=== PATIENT | male | born 1935 | race Caucasian/White ===

== ENCOUNTER 2017-07-13 10:41 | Inpatient (IN) | payer MEDICARE, BC ==
[~2017-07-13] VITALS: Ht 170.2 cm; Wt 63.5 kg
[~2017-07-13 10:41] MED LIST: AMLO5TAB4 PO; CIPR500T4 PO; DIPH-232 PO; LISI-523 PO; METR500T PO; TRAM-40 PO; WARF2.5T PO
[2017-07-13] MEDS ORDERED: ONDANSETRON 4 MG INJ IV STA (10:42)
--- NOTE | 2017-07-13 11:35 | RADRPT ---
PROCEDURE: XR Chest. CLINICAL INDICATION: Shortness of breath. TECHNIQUE: Single frontal view. COMPARISON: 10/15/2014. FINDINGS: This is a limited study with the the patient's hand overlying the right upper lung. The right lung i s otherwise clear. There is chronic scarring, cystic change, and volume loss throughout the left kemi g. The heart size is normal. There is no pleural effusion. There is no pneumothorax. IMPRESSION: 1. Limited study with the the patient's hand overlying the right upper lung. 2. Chronic changes of the left lung. 3. Otherwise unremarkable chest radiograph. 4. No change from 10/15/2014. RPTAT: QQ .Omar Barahona MD, MD Date Time Electronically viewed and signed by .Omar Barahona MD, MD on 07/13/2017 11:34 .R/
[2017-07-13 11:50] LABS: ANION GAP 18 (8-16); BLOOD UREA NITROGEN 19 mg/dl (7-20); CALCIUM 9.7 mg/dl (8.4-10.2); CARBON DIOXIDE 24 mmol/L (21-31); CHLORIDE 108 mmol/L (97-110); CREATININE 1.09 mg/dl (0.61-1.24); GLUCOSE 132 mg/dl (70-220); POTASSIUM 4.4 mmol/L (3.5-5.1); SODIUM 146 mmol/L (135-144)
[2017-07-13 12:04] LABS: INR 1.17; PARTIAL THROMBOPLASTIN TIME 38.2 Sec (25.0-35.0); PT RATIO 1.2; TROPONIN-I < 0.012 ng/ml (0.00-0.12)
--- NOTE | 2017-07-13 12:07 | RADRPT ---
PROCEDURE: CT Brain without contrast. CLINICAL INDICATION: Nonacute stroke, possible stroke TECHNIQUE: Routine CT scan of the brain was performed on a high resolution multi detector scanner without intravenous contrast. One or more of the following dose reduction techniques were used: Auto mated exposure control; Adjustment of the mA and/or kV according to patient size; Use of iterative r econstruction technique. CTDI = 45 mGy. DLP = 720 mGy-cm. DICOM images are available. COMPARISON: CT BRAINW 10/16/2014 FINDINGS: Hemorrhage: No evidence of intracranial hemorrhage. Acute ischemic changes: No evidence of acute ischemic changes. Mass effect: None. Parenchymal volume: Within normal limits for age. Ventricular system: Concordant with parenchymal volume. Chronic changes: Encephalomalacia from right insular/subinsular infarction is unchanged. There are m ultiple areas of low attenuation change within the supratentorial white matter most compatible with moderate chronic microvascular ischemic changes. Atherosclerotic calcifications of the cavernous portions of both internal carotid arteries are prese nt. Extracranial soft tissues: Unremarkable. Calvarium: No fractures. Paranasal sinuses: Visualized paranasal sinuses are clear. Mastoid air cells: Visualized mastoid air cells are clear. IMPRESSION: No acute intracranial abnormalities. Unchanged appearance of chronic infarct of the right insular/7 Catherine region and moderate chronic-appe aring microvascular ischemic changes of the supratentorial white matter. MRI of the brain recommended for further evaluation. RPTAT: AADD .Silvestre Bess MD, Date Time Electronically viewed and signed by .Silvestre Bess MD, on 07/13/2017 12:07 .B/
[2017-07-13 12:23] LABS: BASOPHIL # 0.1 10^3/ul (0.0-0.1); BASOPHILS % 0.5 % (0.0-2.0); EOSINOPHILS % 0.3 % (0.0-7.0); HEMATOCRIT 39.9 % (42.0-52.0); HEMOGLOBIN 13.3 g/dl (14.0-18.0); LYMPHOCYTES # 3.7 10^3/ul (0.8-2.9); LYMPHOCYTES % 23.7 % (15.0-51.0); MEAN CORPUSCULAR HEMOGLOBIN 29.7 pg (29.0-33.0); MEAN CORPUSCULAR HGB CONC 33.3 g/dl (32.0-37.0); MEAN CORPUSCULAR VOLUME 89.1 fl (82.0-101.0); MONOCYTES % 6.6 % (0.0-11.0); NEUTROPHIL # 10.4 10^3/ul (1.6-7.5); PLATELET COUNT 366 10^3/UL (140-415); RED BLOOD COUNT 4.48 10^6/ul (4.70-6.10); RED CELL DISTRIBUTION WIDTH 15.8 % (11.5-14.5); WHITE BLOOD COUNT 15.4 10^3/ul (4.8-10.8)
--- NOTE | 2017-07-13 12:28 | RADRPT ---
PROCEDURE: CT Abdomen and Pelvis without contrast. CLINICAL INDICATION: Abdominal and pelvic pain. TECHNIQUE: CT scan of the abdomen and pelvis without contrast was performed. Coronal and sagittal reformatted images were obtained from the axial source images. Images were reviewed on a high-resolu [employer] PACS workstation. Total exam DLP is 381.66 mGy-cm. CTDIvol is 6.55 mGy. One or more of the fo llowin dose reduction techniques were used: Automated exposure control, adjustment of the mA and/or kV according to patient size, use of iterative reconstruction technique. DICOM images are available . COMPARISON: CT scan of the abdomen and pelvis dated 02/24/2016. FINDINGS: The images are suboptimal due to the patients upper extremities overlying the abdomen and pelvis. right lung base is normal. There is elevation of the left hemidiaphragm and the left lung base is no t included on the images. The liver is normal in size and attenuation. There is no focal hepatic lesion. The gallbladder and bile ducts are normal. The spleen is normal in size. There is no focal splenic lesion. Both adrenals are normal with no enlargement or mass. The pancreas is unremarkable with no mass or evidence of pancreatitis. There is no solid renal mass, hydronephrosis, or calculus. There is a benign cyst arising from the l ower right kidney measuring 5.2 cm. The abdominal aorta is not dilated. There is calcification in the aorta consistent with atherosclero sis. There is no retroperitoneal lymphadenopathy or mass. There is no pelvic lymphadenopathy or mass. The bladder and distal ureters are normal. The periappendiceal region is unremarkable with no evidence of appendicitis. There is diverticulosis of the colon without evidence of diverticulitis. There is thickening of the wall of the small bowel in the left side of the abdomen. There is no evidence of obstruction. The bowel and mesentery are otherwise normal. There is no free fluid or free gas. There are mild degenerative changes of the spine. The osseous structures are otherwise unremarkable with no fracture or lytic lesion. IMPRESSION: 1. Limited study due to the patient's upper extremities overlying the abdomen and pelvis. 2. Elevation of the left hemidiaphragm. 3. Benign cyst arising from the lower right kidney. 4. Sclerosis. 5. Diverticulosis of the colon. No evidence of diverticulitis. 6. Thickening of the wall of the small bowel in the left side of the abdomen. This may indicate an inflammatory process or ischemia. Clinical correlation advised. 7. No evidence of obstruction. 8. Mild degenerative changes of the spine. 9. Otherwise unremarkable CT scan of the abdomen and pelvis. RPTAT: QQ .Omar Barahona MD, MD Date Time Electronically viewed and signed by .Omar Barahona MD, MD on 07/13/2017 12:28 .R/
[2017-07-13] MEDS ORDERED: ASPIRIN 325 MG TAB PO STA (12:34)
[2017-07-13] MEDS ORDERED: APIX2.5T PO (12:47)
[2017-07-13] MEDS ORDERED: AMLO-147 PO (12:48)
[2017-07-13] MEDS ORDERED: ONDANSETRON 4 MG INJ IV PRN (13:00)
[2017-07-13] MEDS ORDERED: ACETAMINOPHEN 325 MG TAB PO PRN ×2 (13:00→20:00)
--- NOTE | 2017-07-13 13:26 | ERD ---
ER Documentation Chief Complaint Chief Complaint biba from home for vomitting , denies pain HPI Patient is an 82-year-old male with stroke and hypertension who presents with dizziness. Please note the history and physical exam is limited secondary to confusion but the patient was interviewed with an Mong[place]ian wellness assistant. The patient was brought in by ambulance. He felt dizzy when he woke up at 8 AM. He came from home. He has nausea and vomiting. He has been urinating a lot. The symptoms started yesterday. He had no chest pain. He had no shortness of breath. The family is concerned about a possible stroke. This is the patient' s fourth visit to the ER since 2008. The patient's primary doctor is Dr. Conner. ROS All systems reviewed and are negative except as per history of present illness. Medications Home Meds Active Scripts Lisinopril* (Zestril*) 5 Mg Tab, 5 MG PO BID, #30 3 Refills Prov:BLAIR MANN 10/18/14 Reported Medications Amlodipine Besylate* (Amlodipine Besylate*) 10 Mg Tablet, 10 MG PO DAILY, #30 TAB 07/13/17 Apixaban* (Eliquis*) 2.5 Mg Tablet, 2.5 MG PO BID, TAB 07/13/17 Discontinued Reported Medications Warfarin Sodium* (Coumadin*) 2.5 Mg Tablet, 2.5 MG PO DIRECTED 09/14/12 Discontinued Scripts Tramadol Hcl* (Ultram*) 50 Mg Tablet, 50 MG PO Q6H Y for PAIN, #20 TAB Prov:CLYDE BERKOWITZ DO 02/24/16 Diphenoxylate Hcl-Atropine (Lomotil) 1 Tab Tablet, 1 TAB PO QID Y for DIARRHEA, #10 TAB Prov:MAHIN BERKOWITZS A. DO 02/24/16 Metronidazole* (Flagyl*) 500 Mg Tablet, 500 MG PO TID for 7 Days, TAB Prov:SHELLI BERKOWITZSTMARYS A. DO 02/24/16 Ciprofloxacin Hcl* (Ciprofloxacin Hcl*) 500 Mg Tablet, 500 MG PO BID for 7 Days , TAB Prov:SHELLI BERKOWITZSTOLOS A. DO 02/24/16 Amlodipine Besylate* (Norvasc*) 5 Mg Tab, 5 MG PO DAILY, #30 3 Refills Prov:BLAIR MANN 10/18/14 Allergies Allergies: Coded Allergies: No Known Drug Allergy (Verified Allergy, Unknown, 07/13/17) PMhx/Soc History of Surgery: Yes (lobectomy 40 yrs ago) Anesthesia Reaction: No Hx Neurological Disorder: No Hx Respiratory Disorders: Yes (copd,lobectomy) Hx Cardiac Disorders: Yes (htn,afib,) Hx Psychiatric Problems: No Hx Miscellaneous Medical Probl: Yes (CVA, HTN, COPD, chronic afib, syncope) Hx Alcohol Use: No Hx Substance Use: No Hx Tobacco Use: No Smoking Status: Former smoker FmHx Family History: No diabetes Physical Exam Vitals Vital Signs Date Time Temp Pulse Resp B/P Pulse Ox O2 Delivery O2 Flow Rate FiO2 07/13/17 11:39 74 17 145/79 94 Room Air 07/13/17 10:58 97.9 80 17 147/76 95 Physical Exam Const: Moderate distress Head: Atraumatic Eyes: Normal Conjunctiva ENT: Normal External Ears, Nose and Mouth. Neck: Full range of motion..~ No meningismus. Resp: Clear to auscultation bilaterally Cardio: Regular rate and rhythm, no murmurs Abd: Soft, non tender, non distended. Normal bowel sounds Skin: No petechiae or rashes Back: No midline or flank tenderness Ext: No cyanosis, or edema Neur: Awake and alert, dizziness, left-sided facial droop, no weakness in the upper or lower extremities bilaterally Psych: Normal Mood and Affect Result Diagram: 07/13/17 1042 07/13/17 1110 Results 24 hrs Laboratory Tests Test 07/13/17 10:42 07/13/17 11:10 White Blood Count 15.410^3/ul Red Blood Count 4.4810^6/ul Hemoglobin 13.3g/dl Hematocrit 39.9% Mean Corpuscular Volume 89.1fl Mean Corpuscular Hemoglobin 29.7pg Mean Corpuscular Hemoglobin Concent 33.3g/dl Red Cell Distribution Width 15.8% Platelet Count 05733^3/UL Mean Platelet Volume 10.0fl Neutrophils % 67.0% Lymphocytes % 23.7% Monocytes % 6.6% Eosinophils % 0.3% Basophils % 0.5% Nucleated Red Blood Cells % 0.0/100WBC Neutrophils # 10.410^3/ul Lymphocytes # 3.710^3/ul Monocytes # 1.010^3/ul Eosinophils # 0.010^3/ul Basophils # 0.110^3/ul Nucleated Red Blood Cells # 0.010^3/ul Prothrombin Time 15.0Sec Prothrombin Time Ratio 1.2 INR International Normalized Ratio 1.17 Activated Partial Thromboplast Time 38.2Sec Sodium Level 146mmol/L Potassium Level 4.4mmol/L Chloride Level 108mmol/L Carbon Dioxide Level 24mmol/L Anion Gap 18 Blood Urea Nitrogen 19mg/dl Creatinine 1.09mg/dl Glucose Level 132mg/dl Hemoglobin A1c 5.7% Calcium Level 9.7mg/dl Troponin I < 0.012ng/ml Current Medications Medications (Trade) Dose Ordered Sig/Luci Route PRN Reason Start Time Stop Time Status Last Admin Dose Admin Ondansetron HCl (Zofran Inj) 4 mg ONCE STAT IV 07/13/17 10:42 07/13/17 10:43 DC 07/13/17 11:18 Aspirin (Aspirin) 325 mg ONCE STAT PO 07/13/17 12:34 07/13/17 12:35 DC Ondansetron HCl (Zofran Inj) 4 mg ER BRIDGE PRN IV NAUSEA AND/OR VOMITING 07/13/17 13:00 07/14/17 12:59 Acetaminophen (Tylenol Tab) 650 mg ER BRIDGE PRN PO MILD PAIN/FEVER 07/13/17 13:00 07/14/17 12:59 Procedures/MDM EKG read by me: Rate/Rhythm: Atrial fibrillation 85 Intervals: Normal Impression: A. fib without ischemia CT brain shows no skull fracture or hemorrhage per radiology. Patient is a 82-year-old male presents with dizziness and vomiting. My concern is for possible acute stroke. The patient will be outside the window for TPA however since the symptoms started yesterday. He had an NIH stroke scale and bedside swallow evaluation done. He was then given aspirin. The patient will be admitted to the care of the panel team under Dr. Zavala to a telemetry bed. He will likely need further workup for stroke. Departure Diagnosis: Primary Impression: Stroke CVA mechanism: unspecified Qualified Code: I63.9 - Cerebrovascular accident (CVA), unspecified mechanism Additional Impressions: Dizzy Vomiting Vomiting type: unspecified Vomiting Intractability: non-intractable Nausea presence: with nausea Qualified Code: R11.2 - Non-intractable vomiting with nausea, unspecified vomiting type Condition: OXANA Corbett MD Jul 13, 2017 13:26
[2017-07-13 15:03] LABS: ADD UMIC YES; UR ASCORBIC ACID NEGATIVE (NEGATIVE); UR BACTERIA MODERATE /HPF (NONE SEEN); UR BILIRUBIN (Dip) NEGATIVE (NEGATIVE); UR BLOOD (Dip) 1+ mg/dL (NEGATIVE); UR CLARITY CLEAR (CLEAR); UR COLOR YELLOW (YELLOW); UR GLUCOSE (Dip) NEGATIVE (NEGATIVE); UR KETONES (Dip) 1+ mg/dL (NEGATIVE); UR LEUKOCYTE ESTERASE (Dip) TRACE Leu/ul (NEGATIVE); UR NITRITE (Dip) NEGATIVE (NEGATIVE); UR RBC 2 /HPF (0-5); UR SPECIFIC GRAVITY (Dip) 1.013 (1.003-1.030); UR TOTAL PROTEIN (Dip) NEGATIVE (NEGATIVE); UR UROBILINOGEN (Dip) NEGATIVE (NEGATIVE)
[2017-07-13 15:26] LABS: BARBITURATES Negative (NEGATIVE); BENZODIAZEPINES Negative (NEGATIVE); CANNABINOIDS Negative (NEGATIVE); OPIATES Negative (NEGATIVE)
[2017-07-13 15:57] LABS: COCAINE Negative (NEGATIVE)
[2017-07-13 16:00] VITALS: BP 111/68; RESP 18
[2017-07-13 16:15] VITALS: Ht 170.2 cm; Wt 63.5 kg
[2017-07-13 16:40] VITALS: PULSE 68
--- NOTE | 2017-07-13 19:58 | HP ---
Date/Time of Note Date/Time of Note DATE: 07/13/17 TIME: 19:51 Assessment/Plan VTE Prophylaxis VTE Prophylaxis Intervention: SCD's Lines/Catheters IV Catheter Type (from Nrsg): Saline Lock Assessment/Plan Assessment/Plan 82 yo M with AFib on ATC here with 1 day of lightheadedness, son also notes several mos of weight loss. d/dx includes TIA v presyncope v other PLAN MRI brain to f/u CT, MRA brain/neck TTE PT/OT/ST lipids, a1c <5.7 check orthostatics, hold ccb. cont acei cont home NOAC for leukocytosis-->defer abx as no L shift and no other SIRS criteria consider GI eval for SB inflammation? for weight loss: RD eval memory lapses: OT eval, b12, folate, tsh, consider RPR HPI/ROS Admit Date/Time Admit Date/Time Jul 13, 2017 at 12:55 Hx of Present Illness CC weakness x 1 day, 2 presyncopal episodes HPI 82 yo M with hx AFib on ATC, HTN presents with 1 day of LE weakness and 2 presyncopal episodes. Per pt's son with whom he lives pt was [place] [facility] this morning fell in the bathroom. Pt had just urinated then felt lightheaded and fell to the ground. Did not hit his head. Was helped back to bed by family. Later while trying to use the bathroom again, felt very lightheaded and almost passed out. No chest pain, no SOB. Per son pt has been eating well but states he seems to have been losing weight for the past few mos, he's not sure just how much weight the patient has lost. CT in the ER reviewed Son also states there have been episodes where pt appears to forget thing more often PMH/Family/Social Social History lives in the community Smoking Status: Former smoker Exam/Review of Systems Vital Signs Vitals Vital Signs Date Time Temp Pulse Resp B/P Pulse Ox O2 Delivery O2 Flow Rate FiO2 07/13/17 16:40 68 07/13/17 16:00 97.6 18 111/68 100 07/13/17 14:49 Room Air Exam Exam nad EOMI speaks slowly, per family this is his baseline irreg irreg, no mrg lungs clear abd soft no rashes moves exts freely, 5/5 strength bl U and LEs CT head reviewed, CT A/P with ?SB inflammation WBCs high but no L shift Cr nl Labs Result Diagram: 07/13/17 1042 07/13/17 1110 Medications Medications Current Medications Amlodipine Besylate (Norvasc) 10 mg DAILY PO ; Start 07/14/17 at 09:00 Apixaban (Eliquis) 2.5 mg BID PO ; Start 07/13/17 at 21:00 Lisinopril (Zestril) 5 mg BID PO ; Start 07/13/17 at 21:00 Influenza Virus Vaccine (Fluzone) 0.5 ml ONCE ONCE IM* ; Start 07/14/17 at 09: 00; Stop 07/14/17 at 09:01 REBECCA VARELA MD Jul 13, 2017 19:58
[2017-07-13 20:00] VITALS: BP 141/71; RESP 20
[2017-07-13] MEDS ORDERED: HYDROCODONE/APAP (5/325) TAB PO PRN (20:00)
[2017-07-13] MEDS ORDERED: NACL 0.9% 3 ML SYG IV SCH (20:00)
[2017-07-13] MEDS ORDERED: MAGNESIUM HYDROXIDE 30ML CUP PO PRN (20:00)
[2017-07-13] MEDS ORDERED: DOCUSATE SODIUM 100 MG CAP PO PRN (20:00)
[2017-07-13] MEDS ORDERED: BISACODYL (EC) 5 MG TAB PO PRN (20:00)
[2017-07-13 20:05] VITALS: PULSE 60
[2017-07-13] MEDS: APIXABAN 5 MG TABLET PO SCH (20:12)
[2017-07-13 20:15] VITALS: BP 141/71; PULSE 66; RESP 18
[2017-07-13] MEDS: LISINOPRIL 5 MG TAB PO SCH (20:15)
[2017-07-14] VITALS (15 sets, daily range): BP systolic 106–135; BP diastolic 59–66; PULSE 40–86; RESP 16–21
[2017-07-14 06:54] LABS: BASOPHILS % 0.4 % (0.0-2.0); EOSINOPHILS % 0.3 % (0.0-7.0); HEMOGLOBIN 12.4 g/dl (14.0-18.0); LYMPHOCYTES # 1.5 10^3/ul (0.8-2.9); LYMPHOCYTES % 16.7 % (15.0-51.0); MEAN CORPUSCULAR HEMOGLOBIN 29.7 pg (29.0-33.0); MEAN CORPUSCULAR HGB CONC 33.5 g/dl (32.0-37.0); MEAN CORPUSCULAR VOLUME 88.7 fl (82.0-101.0); MEAN PLATELET VOLUME 9.5 fl (7.4-10.4); MONOCYTE # 0.8 10^3/ul (0.3-0.9); MONOCYTES % 8.5 % (0.0-11.0); NEUTROPHIL # 6.7 10^3/ul (1.6-7.5); NEUTROPHILS % 73.5 % (39.0-77.0); PLATELET COUNT 326 10^3/UL (140-415); RED BLOOD COUNT 4.17 10^6/ul (4.70-6.10); RED CELL DISTRIBUTION WIDTH 16.2 % (11.5-14.5); WHITE BLOOD COUNT 9.1 10^3/ul (4.8-10.8)
[2017-07-14 08:01] LABS: THYROID STIMULATING HORMONE 0.611 MIU/L (0.465-4.680)
[2017-07-14 08:05] LABS: CHOL/HDL RATIO 3.4 RATIO
[2017-07-14 08:09] LABS: ALBUMIN 3.2 g/dl (3.3-4.9); ALBUMIN/GLOBULIN RATIO 0.78; BILIRUBIN,INDIRECT 0.2 mg/dl (0-1.1); BILIRUBIN,TOTAL 0.2 mg/dl (0.2-1.3); CALCIUM 9.7 mg/dl (8.4-10.2); CREATININE 1.11 mg/dl (0.61-1.24); POTASSIUM 4.5 mmol/L (3.5-5.1); TOTAL PROTEIN 7.3 g/dl (6.1-8.1)
[2017-07-14 08:36] LABS: FOLATE 10.6 ng/ml (2.8-20.0)
[2017-07-14] MEDS: ASPIRIN 81 MG TAB PO SCH (08:45)
[2017-07-14] MEDS: APIXABAN 5 MG TABLET PO SCH ×2 (08:45→21:15)
[2017-07-14] MEDS: LISINOPRIL 5 MG TAB PO SCH (08:47)
[2017-07-14] MEDS ORDERED: INFLUENZA VIRUS VACCINE 0.5 ML (DISPENSING) IM* ONE (09:00)
[2017-07-14] MEDS ORDERED: AMLODIPINE 10 MG TAB PO SCH (09:00)
--- NOTE | 2017-07-14 13:33 | RADRPT ---
Echocardiogram Report Patient Name: NAKIA FAUSTIN Gender: Male Date: 1935 Study Date: 14-Jul-2017 Community Representative: Cedric Calloway [facility] Location: [id number] Ref. Physician: REBECCA VARELA Quality: Good Procedures: Transthoracic echocardiogram with complete 2D, M-Mode, and doppler examination. Indications: Transient Ischemic Attack. 2D/M Mode Doppler Measurement Value Normal Ranges Measurement Value Normal Ranges LVIDd 2D 4.5 3.5 - 5.6 cm AV Peak Jimmie 1.7 m/sec LVIDs 2D 1.5 2.1 - 4.1 cm AV Peak PG 11.1 mmHg LVPWd 2D 1.0 0.6 - 1.1 cm AI Peak PG 73.1 mmHg IVSd 2D 1.2 0.6 - 1.1 cm AI Peak Jimmie 4.3 m/sec AoR Diam 2D 3.2 2.0 - 3.7 cm AI PHT 705.1 msec EDV 2D 91.1 cm3 LVOT Peak Jimmie 0.9 m/sec ESV 2D 3.4 cm3 LVOT Peak PG 3.3 mmHg LA Dimen 2D 5.1 2.3 - 4.0 cm MV E Peak Jimmie 1.3 m/sec MV A Peak Jimmie 0.2 m/sec MV E/A 5.5 MV Decel Time 191 msec MV Decel Kendall 7 MV E/A 5.5 TR Peak Jimmie 3.7 m/sec TR Peak PG 54.7 mmHg RVSP 63.0 mmHg Findings Left Ventricle: Normal left ventricular systolic function. Normal left ventricular cavity size. Normal left ventricular wall thickness. Ejection fraction is visually estimated at 65 %. Right Ventricle: Normal right ventricular size. Normal right ventricular systolic function. Left Atrium: There is severe enlargement of left atrium. Right Atrium: There is severe enlargement of right atrium. Atrial Septum: Atrial septum color Doppler interrogation consistent with a PFO. Mitral Valve: Mitral valve leaflets appear mildly thickened. Mild mitral annular calcification. Moderate to severe mitral valve regurgitation. Aortic Valve: No hemodynamically significant aortic stenosis by doppler. Aortic cusps appear mildly calcified. Mild aortic valve regurgitation. Tricuspid Valve: Estimated peak PA systolic pressure 63 mmHg. There is moderate to severe tricuspid regurgitation. Pulmonic Valve: Normal pulmonic valve appearance. Pericardium: Normal pericardium with no significant pericardial effusion. Aorta: Normal aortic root. IVC: Dilated IVC with respiratory collapse consistent with elevated right atrial pressure. Conclusions 1.Normal left ventricular systolic function. Normal left ventricular cavity size. Normal left ventricular wall thickness. Ejection fraction is visually estimated at 65 %. 2.Moderate to severe mitral valve regurgitation. 3.Moderate to severe tricuspid regurgitation. 4.Mild aortic valve regurgitation. 5.There is severe enlargement of left atrium. There is severe enlargement of right atrium. Atrial septum color Doppler interrogation consistent with a PFO. 6.Estimated peak PA systolic pressure 63 mmHg based on RA pressure of 8 mmHg. Electronically Signed By: Mykel Torres 14-Jul-2017 13:31:56 -0800 Patient Name: NAKIA FAUSTIN Study Date: 14-Jul-[id number]
--- NOTE | 2017-07-14 14:33 | PN ---
Date/Time of Note Date/Time of Note DATE: 07/14/17 TIME: 14:22 Assessment/Plan VTE Prophylaxis VTE Prophylaxis Intervention: other (Eliquis) Lines/Catheters [facility] Saline Lock Urinary Cath still in place: No Assessment/Plan Chief Complaint/Hosp Course Assessment/Plan: 82 yo M with AFib on ATC here with 1 day of lightheadedness, son also notes several mos of weight loss. d/dx includes TIA v presyncope v other 1. Lightheadedness/Syncope: - f/u MRI brain MRA brain/neck - pending - PT/OT/ST - holding ccb and acei for now 2./ afib: Presently rate controlled with occasional PVCs -Monitor, cont home NOAC 2. leukocytosis--> resolved now - defer abx as no L shift and no other SIRS criteria - consider GI eval for SB inflammation if worsens? 3. weight loss: RD eval 4. memory lapses: OT eval, b12, folate, tsh, consider RPR Problems: Subjective 24 Hr Interval Summary Free Text/Dictation No acute events overnight, no episodes of syncope overnight, seen by speech and OT teams. Exam/Review of Systems Vital Signs Vitals Vital Signs Date Time Temp Pulse Resp B/P Pulse Ox O2 Delivery O2 Flow Rate FiO2 07/14/17 12:25 98.3 52 21 119/66 96 07/14/17 08:00 Room Air Exam nad EOMI speaks slowly, per family this is his baseline irreg irreg, no mrg lungs clear abd soft no rashes moves exts freely, 5/5 strength bl U and LEs Results Result Diagram: 07/14/17 0626 07/14/17 0627 Results 24 hrs Laboratory Tests Test 07/13/17 14:45 07/14/17 06:26 07/14/17 06:27 Urine Color YELLOW Urine Clarity CLEAR Urine pH 5.0 Urine Specific [place] 1.013 Urine Ketones 1+ H Urine Nitrite NEGATIVE Urine Bilirubin NEGATIVE Urine Urobilinogen NEGATIVE Urine Leukocyte Esterase TRACE A Urine Microscopic RBC 2 Urine Microscopic WBC 23 H Urine Bacteria MODERATE Urine Hemoglobin 1+ H Urine Glucose NEGATIVE Urine Total Protein NEGATIVE Urine Opiates Screen Negative Urine Barbiturates Negative Urine Amphetamines Screen Negative Urine Benzodiazepines Screen Negative Urine Cocaine Screen Negative Urine Cannabinoids Negative White Blood Count 9.1 # Red Blood Count 4.17 L Hemoglobin 12.4 L Hematocrit 37.0 L Mean Corpuscular Volume 88.7 Mean Corpuscular Hemoglobin 29.7 Mean Corpuscular Hemoglobin Concent 33.5 Red Cell Distribution Width 16.2 H Platelet Count 326 Mean Platelet Volume 9.5 Neutrophils % 73.5 Lymphocytes % 16.7 Monocytes % 8.5 Eosinophils % 0.3 Basophils % 0.4 Nucleated Red Blood Cells % 0.0 Neutrophils # 6.7 Lymphocytes # 1.5 Monocytes # 0.8 Eosinophils # 0.0 Basophils # 0.0 Nucleated Red Blood Cells # 0.0 Hemoglobin A1c 5.8 Alkaline Phosphatase 72 70 Triglycerides Level 75 Cholesterol Level 124 LDL Cholesterol, Calculated 73 HDL Cholesterol 36 Cholesterol/HDL Ratio 3.4 Vitamin B12 Level 655 Folate 10.6 Thyroid Stimulating Hormone (TSH) 0.611 HIV (1&2) Antibody NEGATIVE Sodium Level 145 H Potassium Level 4.5 Chloride Level 107 Carbon Dioxide Level 29 Anion Gap 14 Blood Urea Nitrogen 20 Creatinine 1.11 Glucose Level 93 Calcium Level 9.7 Total Bilirubin 0.2 Direct Bilirubin 0.00 Indirect Bilirubin 0.2 Aspartate Amino Transf (AST/SGOT) 15 Alanine Aminotransferase (ALT/SGPT) 21 Total Protein 7.3 Albumin 3.2 L Globulin 4.10 H Albumin/Globulin Ratio 0.78 Medications Medications Current Medications Apixaban (Eliquis) 2.5 mg BID PO Last administered on 07/14/17 08:45; Admin Dose 2.5 MG; Start 07/13/17 at 21:00 Lisinopril (Zestril) 5 mg BID PO Last administered on 07/14/17 08:47; Admin Dose 5 MG; Start 07/13/17 at 21:00; Status Future Hold Aspirin (Aspirin) 81 mg DAILY PO Last administered on 07/14/17 08:45; Admin Dose 81 MG; Start 07/14/17 at 09:00 Acetaminophen (Tylenol Tab) 650 mg Q6H PRN PO PAIN LEVEL 1-3 OR FEVER; Start 07/13/17 at 20:00 Acetaminophen/ Hydrocodone Bitart (Mazama (5/325)) 1 tab Q6H PRN PO PAIN LEVEL 4 -6; Start 07/13/17 at 20:00 Docusate Sodium (Colace) 100 mg Q12H PRN PO CONSTIPATION; Start 07/13/17 at 20 :00 Magnesium Hydroxide (Milk Of Mag) 30 ml DAILY PRN PO CONSTIPATION; Start 07/13 at 20:00 Bisacodyl (Dulcolax) 5 mg DAILY PRN PO CONSTIPATION; Start 07/13/17 at 20:00 Procedures Procedures 2D ECHO: Conclusions 1. Normal left ventricular systolic function. Normal left ventricular cavity size. Normal left ventricular wall thickness. Ejection fraction is visually estimated at 65 %. 2. Moderate to severe mitral valve regurgitation. 3. Moderate to severe tricuspid regurgitation. 4. Mild aortic valve regurgitation. 5. There is severe enlargement of left atrium. There is severe enlargement of right atrium. Atrial septum color Doppler interrogation consistent with a PFO. 6. Estimated peak PA systolic pressure 63 mmHg based on RA pressure of 8 mmHg. CECE SOUZA Jul 14, 2017 14:33
[2017-07-15] VITALS (10 sets, daily range): BP systolic 98–140; BP diastolic 51–77; PULSE 50–85; RESP 17–20
[2017-07-15] MEDS ORDERED: ZOLPIDEM 5 MG TAB PO PRN (00:22)
--- NOTE | 2017-07-15 04:19 | RADRPT ---
PROCEDURE: MR Brain with and without contrast. CLINICAL INDICATION: TIA. Abnormal CT brain. TECHNIQUE: An MRI of the brain was performed utilizing the following sequences: Sagittal T1 weig hted, axial T2 weighted, axial diffusion weighted (EPI technique [id number]), axial ADC mapping, axial F LAIR, coronal GRE, and post contrast coronal and axial T1 weighted. 20 cc of Magnevist was given in travenously without complication. COMPARISON: CT brain 07/13/2017. FINDINGS: No acute intracranial hemorrhage, midline shift or restricted diffusion is present to suggest an acu te ischemic infarct. Chronic infarcts of the right frontal and parietal operculum, the insular cortex and schmidt radiata resultant in severe right side parenchymal volume loss. There is Wallerian degeneration of the cereb ral peduncle demonstrated on axial T1 image 11. Moderately severe right volume loss of the left cere bral hemisphere and posterior fossa is present. Gradient echo images reveal no evidence of hemorrhag ic blood products. Confluent and patchy hyperintense foci are present on FLAIR and T2-weighted image s within the subcortical, deep white matter, mid brain and karen consistent with moderate microvascul ar white matter ischemic disease. Asymmetric enlargement of the right lateral ventricle is secondary to a remote adjacent infarct. There is no evidence of hydrocephalus. No space occupying intra-axial masses extra-axial fluid collections are pathologic enhancement is present.. The orbits are unremar kable. There is an atelectatic left maxillary sinus with wall thickening consistent with chronic sinusitis. Minimal peripheral mucosal thickening involves the bilateral frontal, ethmoid and sphenoid sinuses. Flow voids persist within the internal carotid, vertebral, and basilar arteries. IMPRESSION: 1. No acute ischemic infarct. 2. Chronic infarct of the right frontal and parietal operculum, the insular cortex, and schmidt radi portia. 3. Moderate microvascular white matter ischemic disease. 4. Wallerian degeneration of the right cerebral peduncle. 5. Chronic sinusitis of an atelectatic left maxillary sinus. 6. Mild paranasal sinus disease. RPTAT: HRSR Physician Cayla Date Time Electronically viewed and signed by Rachael Yeager Physician on 07/15/2017 04:19 RR/
--- NOTE | 2017-07-15 04:40 | RADRPT ---
PROCEDURE: MRA Neck without contrast. CLINICAL INDICATION: TIA. TECHNIQUE: An MRA of the major cervical arteries was performed utilizing axial 2D time of flight to the carotid bifurcations. 20 cc of intravenous Magnevist was given. Source and MIPPED images we re reviewed. COMPARISON: No prior studies are available for comparison. FINDINGS: The common carotid arteries are patent. Atherosclerotic disease of the left internal carotid artery results in an estimated stenosis of 50-60% by NASCET criteria. The left external carotid artery is p atent. No hemodynamically significant stenosis involves the right internal carotid artery by NASCET criteria . The vertebral arteries are patent and normal in caliber bilaterally. There is no evidenc e of vascular conclusion. IMPRESSION: 1. Estimated 55-60% stenosis of the left internal carotid artery by NASCET criteria. 2. No hemodynamically significant stenosis of the right internal artery by NASCET criteria. 3. No hemodynamically significant stenosis of the bilateral vertebral arteries. RPTAT: HRSR Physician Cayla Date Time Electronically viewed and signed by Physician Cayla on 07/15/2017 04:40 RR/
--- NOTE | 2017-07-15 04:47 | RADRPT ---
PROCEDURE: MRA Brain. CLINICAL INDICATION: Transient ischemic attack TECHNIQUE: 3-D teal-ma-xdzitv MR angiography of the intracranial vasculature was performed without contrast. Multiplanar reformatted and 3-D maximum intensity projection reconstructed images were t hen performed. COMPARISON: None FINDINGS: The study is moderately limited by patient motion. Irregularity of the intracranial internal caroti d arteries may be due to motion artifact. The distal vertebral arteries appear grossly patent. The b asilar artery is grossly patent. The anterior, middle, and posterior cerebral arteries are grossly p atent. No gross aneurysm or significant stenosis. Small caliber left A1 segment. Flow to the left an terior cerebral artery is predominately through the anterior communicating artery. IMPRESSION: Study limited by motion. No gross aneurysm or significant stenosis. RPTAT: HLBE Physician Patrick Date Time Electronically viewed and signed by Danuta Gómez Physician on 07/15/2017 04:47 EVER/
[2017-07-15] MEDS ORDERED: HALOPERIDOL 5 MG INJ IM ONE (05:45)
[2017-07-15] MEDS ORDERED: LORAZEPAM 2 MG INJ IV ONE (08:00)
[2017-07-15] MEDS ORDERED: AMLODIPINE 10 MG TAB PO SCH (09:00)
[2017-07-15] MEDS: APIXABAN 5 MG TABLET PO SCH ×2 (13:46→20:57)
[2017-07-15] MEDS: ASPIRIN 81 MG TAB PO SCH (13:57)
--- NOTE | 2017-07-15 14:02 | PN ---
Date/Time of Note Date/Time of Note DATE: 07/15/17 TIME: 13:56 Assessment/Plan VTE Prophylaxis VTE Prophylaxis Intervention: other (Eliquis) Lines/Catheters IV Catheter Type (from Nrs): Saline Lock Urinary Cath still in place: No Assessment/Plan Chief Complaint/Hosp Course Assessment/Plan: 82 yo M with AFib on ATC here with 1 day of lightheadedness, son also notes several mos of weight loss. d/dx includes TIA v presyncope v other 1. Lightheadedness/Syncope: Resolving now, MRI brain MRA brain/neck noted results -see below -Continue PT/OT/ST - holding ccb and acei for now -Given MRA neck findings of carotid stenosis, will get CT angios neck and get vascular surgery consult. 2./ afib: Presently rate controlled with occasional PVCs -Monitor, cont home NOAC 2. leukocytosis--> resolved now - defer abx as no L shift and no other SIRS criteria - consider GI eval for SB inflammation if worsens? 3. weight loss: RD eval 4. memory lapses: Follow-up OT eval, b12, folate, tsh, consider RPR Problems: Subjective 24 Hr Interval Summary Free Text/Dictation Patient had MRI and MRA of the brain performed yesterday. Had some confusion this morning, relieved with Haldol. Exam/Review of Systems Vital Signs Vitals Vital Signs Date Time Temp Pulse Resp B/P Pulse Ox O2 Delivery O2 Flow Rate FiO2 07/15/17 12:03 56 07/15/17 11:16 97.5 20 98/51 96 07/14/17 16:00 Room Air Intake and Output 07/14/17 07/14/17 07/15/17 14:59 22:59 06:59 Intake Total 1000 ml 300 ml Output Total 600 ml Balance 400 ml 300 ml Exam Lying in bed EOMI speaks slowly, per family this is his baseline irreg irreg, no mrg lungs clear abd soft no rashes moves exts freely, 5/5 strength bl U and LEs Results Result Diagram: 07/14/1762507/14/17 06 Medications Medications Current Medications Apixaban (Eliquis) 2.5 mg BID PO Last administered on 07/15/17t 13:46; Admin Dose 2.5 MG; Start 07/13/17 at 21:00 Lisinopril (Zestril) 5 mg BID PO Last administered on 07/14/17 08:47; Admin Dose 5 MG; Start 07/13/17 at 21:00; Status Future Hold Aspirin (Aspirin) 81 mg DAILY PO Last administered on 07/14/17 08:45; Admin Dose 81 MG; Start 07/14/17 at 09:00 Acetaminophen (Tylenol Tab) 650 mg Q6H PRN PO PAIN LEVEL 1-3 OR FEVER; Start 07/13/17 at 20:00 Acetaminophen/ Hydrocodone Bitart ([place] (5/325)) 1 tab Q6H PRN PO PAIN LEVEL 4 -6; Start 07/13/17 at 20:00 Docusate Sodium (Colace) 100 mg Q12H PRN PO CONSTIPATION; Start 07/13/17 at 20 :00 Magnesium Hydroxide (Milk Of Mag) 30 ml DAILY PRN PO CONSTIPATION; Start 07/13 at 20:00 Bisacodyl (Dulcolax) 5 mg DAILY PRN PO CONSTIPATION; Start 07/13/17 at 20:00 Procedures Procedures MRI brain: 1. No acute ischemic infarct. 2. 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 3. Moderate microvascular white matter ischemic disease. 4. Wallerian degeneration of the right cerebral peduncle. 5. Chronic sinusitis of an atelectatic left maxillary sinus. 6. Mild paranasal sinus disease. MRA brain: IMPRESSION: Study limited by motion. No gross aneurysm or significant stenosis. MRA neck: IMPRESSION: 1. Estimated 55-60% stenosis of the left internal carotid artery by NASCET criteria. 2. No hemodynamically significant stenosis of the right internal artery by NASCET criteria. 3. No hemodynamically significant stenosis of the bilateral vertebral arteries. CECE SOUZA Jul 15, 2017 14:02
[2017-07-15] MEDS ORDERED: IODIXANOL LOCM 100 ML BTL ONE (17:58)
[2017-07-15] MEDS ORDERED: SOD CHLORIDE 0.9% 100 ML ONE (17:58)
--- NOTE | 2017-07-15 20:53 | RADRPT ---
PROCEDURE: CTA Neck. CLINICAL INDICATION: TIA. Left ICA stenosis on the MRA. TECHNIQUE: The study was performed utilizing a multi-slice multidetector CT scanner. Direct spiral 0.625 mm axial sections were obtained through the neck with the use of 100 cc of Visipaque 320 jose onic intravenous contrast material. Coronal and sagittal as well as maximal intensity projection re formations were obtained. 3-D images were made. The images were reviewed on a PACS workstation. The total CTDIvol is 82.5, and 14.19 mGy and the DLP is 370.42 mGy-cm. DICOM images are available. One or more of the following dose reduction techniques were used: Automated exposure control. Adjustment of the mA and/or kV according to patient size. Use of iterative reconstruction technique. COMPARISON: MRA neck without contrast 07/14/2017 FINDINGS: The common carotid arteries are normal in appearance without significant atherosclerotic plaque or stenosis. Minimal eccentric fibrocalcific plaque is seen at the right carotid bulb and proximal ICA with no hemodynamically significant stenosis. There is circumferential fibrofatty plaque at the left carotid bulb and proximal ICA with approximately 40 % stenosis. The vertebral arteries are also pa tent and normal in caliber bilaterally. There is no evidence of a hemodynamically significant steno sis or dissection. The origins of the great vessels of the thoracic arch are not in the field of vie w. There is volume loss extensive of the left hemithorax with leftward mediastinal shift. Extensive bronchiectasis in the left lung apex as noted. IMPRESSION: 1. Circumferential fibrofatty plaque at the left carotid bulb and proximal ICA with approximately 4 0 % stenosis. 2. Minimal eccentric fibrocalcific plaque at the right carotid bulb/proximal ICA with no significan t stenosis. 3. Vertebral arteries are normal in caliber with no significant stenosis or atherosclerotic changes . 4. Extensive bronchiectasis in the left lung apex. Volume loss of the left hemithorax with leftward mediastinal shift. NASCET CAROTID STENOSIS CRITERIA (distal normal appearing ICA as denominator for measurement): 0%-no ne, 1-49%-mild, 50-70%-moderate, 70-89%-severe, 90-99%-critical. RPTAT: HHO .Leora Santamaria MD, Date Time Electronically viewed and signed by .Leora Santamaria MD, on 07/15/2017 20:52 .O/
[2017-07-16] VITALS (12 sets, daily range): BP systolic 116–154; BP diastolic 63–79; PULSE 40–96; RESP 16–18
--- NOTE | 2017-07-16 00:04 | HP ---
DATE OF ADMISSION: 07/15/2017 VASCULAR SURGERY CONSULTATION Dear Doctors: Mr. Baeza is an 82-year-old gentleman who presented to [facility] secondary to having lower extremity weakness and 2 near syncopal episodes for which he was jared t in for further evaluation. The patient at the moment denies shortness of breath, chest pain, naus ea, vomiting, fever or chills. He is able to anterior simple questions at the bedside. He denies a ny weakness or blurry vision, such as amaurosis fugax or any rest pain. REVIEW OF SYSTEMS: A 14-point review performed and negative except what is mentioned in the HPI. PAST MEDICAL HISTORY: Entails hypertension, atrial fibrillation, bilateral lower extremity atherosc lerosis, ex-smoker, mild to moderate dementia, hypertension, chronic AFib and previous syncope. PAST SURGICAL HISTORY: Lobectomy. FAMILY HISTORY: Hypertension. SOCIAL HISTORY: Ex-smoker for many years. Denies current tobacco, alcohol or illicit drug use. PHYSICAL EXAMINATION: GENERAL: Alert and awake and answers some questions. No apparent distress. HEENT: Normocephalic, atraumatic. PERRLA. EOMI. Mucosa moist. Cranial nerves II through XII are intact. NECK: Supple, no carotid bruit. PULMONARY: Clear to auscultation bilaterally. No crackles. CARDIOVASCULAR: S1, S2 present. No murmurs. ABDOMEN: Soft, nontender, nondistended. Bowel sounds positive. EXTREMITIES: Lower extremities, palpable femoral pulse, faint pedal pulse. Motor, sensory intact. Cap refill 2 to 3 seconds. ASSESSMENT AND PLAN: Left carotid artery stenosis, asymptomatic: It seems the patient's syncopal e pisodes are unlikely related to his findings of left carotid stenosis. There is some discrepancy be tween the CTA and the MRA; however, given the low percentage of the stenosis, MRA tends to exaggerat e the percentage of stenosis at times. Would not recommend for any vascular intervention at this ti me and would continue with the current cardiac workup. Optimize vascular status (BP meds, diet, nutrition, exercise, sugar control, antiplatelets). Discussed findings, plan and management with the patient and the primary service. Thank you for allowing us to partake in the care of your patient. Please call with any questions. Dictated By: SANGEETHA GREENFIELD/JM Conf#: [id number] DID#: [id number]
[2017-07-16] MEDS: ASPIRIN 81 MG TAB PO SCH (08:47)
[2017-07-16] MEDS: APIXABAN 5 MG TABLET PO SCH ×2 (08:48→12:20)
--- NOTE | 2017-07-16 11:04 | CONS ---
Date/Time of Note Date/Time of Note DATE: 07/16/17 TIME: 10:54 Assessment/Plan Assessment/Plan Additional Assessment/Plan Lightheadedness and possible near syncope SIRS History of CVA Atrial fibrillation on anticoagulation Hypertension Preserved ejection fraction Mitral and tricuspid valve regurgitation -Telemetry reviewed with atrial fibrillation with heart rates ranging from the high 40s to the 70s. Echocardiogram with preserved ejection fraction. Brain imaging with no evidence of acute CVA, there is evidence of moderate carotid artery stenosis but this is unlikely contributing factor. Will continue on beta blockers or AV miriam blocking agents the current time. If blood pressure and renal function tolerates, consider initiation of JENNY inhibitor given mitral regurgitation. Continue anticoagulation as tolerated. Consultation Date/Type/Reason Admit Date/Time Jul 13, 2017 at 12:55 Type of Consultation: cv Reason for Consultation Cardiology evaluation Hx of Present Illness This is an 82-year-old male with past medical history of atrial fibrillation, CVA, hypertension who presents with episodes of lightheadedness and possible syncope. History is obtained from medical chart given patient unable to give history at the current time. Appears patient became lightheaded with a fall. It is unclear patient lost consciousness. Patient undergoing CVA/TIA workup. Unable to perform at the current time Past Medical History Atrial fibrillation Hypertension CVA Medical History: hypertension Family History Significant Family History: no pertinent family hx Social History Smoking Status: Former smoker Exam/Review of Systems Vital Signs Vitals Vital Signs Date Time Temp Pulse Resp B/P Pulse Ox O2 Delivery O2 Flow Rate FiO2 07/16/17 08:12 62 07/16/17 08:10 97.6 17 138/74 98 07/15/17 20:00 Nasal Cannula 2.0 Intake and Output 07/15/17 07/15/17 07/16/17 15:00 23:00 07:00 Intake Total 350 ml 240 ml Balance 350 ml 240 ml Exam Awake, following basic commands, not answering questions when asked, no apparent distress Constitutional: frail Head: normocephalic Respiratory: other (Coarse breath sounds bilaterally, no wheezing) Cardiovascular: irregular rhythm, other (S1-S2 heard), systolic murmur Gastrointestinal: bowel sounds, non-tender, soft Extremities: other (No significant edema) Results Result Diagram: 07/14/17 0626 07/14/17 0627 Medications Medications Current Medications Apixaban (Eliquis) 2.5 mg BID PO Last administered on 07/15/17 20:57; Admin Dose 2.5 MG; Start 07/13/17 at 21:00 Lisinopril (Zestril) 5 mg BID PO Last administered on 07/14/17 08:47; Admin Dose 5 MG; Start 07/13/17 at 21:00; Status Future Hold Aspirin (Aspirin) 81 mg DAILY PO Last administered on 07/16/17 08:47; Admin Dose 81 MG; Start 07/14/17 at 09:00 Acetaminophen (Tylenol Tab) 650 mg Q6H PRN PO PAIN LEVEL 1-3 OR FEVER; Start 07/13/17 at 20:00 Acetaminophen/ Hydrocodone Bitart ([place] (5/325)) 1 tab Q6H PRN PO PAIN LEVEL 4 -6; Start 07/13/17 at 20:00 Docusate Sodium (Colace) 100 mg Q12H PRN PO CONSTIPATION; Start 07/13/17 at 20 :00 Magnesium Hydroxide (Milk Of Mag) 30 ml DAILY PRN PO CONSTIPATION; Start 07/13 at 20:00 Bisacodyl (Dulcolax) 5 mg DAILY PRN PO CONSTIPATION; Start 07/13/17 at 20:00 Procedures Procedures ECG demonstrates atrial fibrillation 85 bpm, QRS 108 ms, nonspecific ST abnormalities Easton Joseph DO Jul 16, 2017 11:04
--- NOTE | 2017-07-16 12:49 | PDOCDIS ---
Discharge Instructions CONDITION Patient Condition: Stable HOME CARE INSTRUCTIONS: Special Diet: low fat/chol ACTIVITY: Activity Restrictions: Slowly Increase Activity FOLLOW UP/APPOINTMENTS Follow-up Plan Please take your medications as prescribed, please see her regular doctor in the clinic in the next 1-2 weeks. CECE SOUZA Jul 16, 2017 12:49
--- NOTE | 2017-07-16 12:57 | DS ---
Date/Time of Note Date/Time of Note DATE: 07/16/17 TIME: 12:51 Discharge Summary Admission/Discharge Info Admit Date/Time Jul 15, 2017 at 14:10 Discharge Date/Time Discharge Diagnosis 1. Lightheadedness/Syncope: Resolving now, MRI brain MRA brain/neck noted 2./ afib: Presently rate controlled with occasional PVCs -Monitor, cont home NOAC 2. leukocytosis--> resolved now 3. weight loss: RD eval 4. memory lapses: B12 folate normal, monitor Patient Condition: Stable Hospital Course 82 yo M with hx AFib on ATC, HTN presents with 1 day of LE weakness and 2 presyncopal episodes. Per pt's son with whom he lives pt was in USOH until falling the day of admission in the bathroom. Pt had just urinated then felt lightheaded and fell to the ground. Did not hit his head. Was helped back to bed by family. Later while trying to use the bathroom again, felt very lightheaded and almost passed out. No chest pain, no SOB. Per son pt has been eating well but states he seems to have been losing weight for the past few mos , he's not sure just how much weight the patient has lost. The patient was admitted, seen by speech, occupational, and physical therapies, along with vascular surgery and cardiology teams during this hospital stay. 2D ECHO showed: Conclusions 1. Normal left ventricular systolic function. Normal left ventricular cavity size. Normal left ventricular wall thickness. Ejection fraction is visually estimated at 65 %. 2. Moderate to severe mitral valve regurgitation. 3. Moderate to severe tricuspid regurgitation. 4. Mild aortic valve regurgitation. 5. There is severe enlargement of left atrium. There is severe enlargement of right atrium. Atrial septum color Doppler interrogation consistent with a PFO. 6. Estimated peak PA systolic pressure 63 mmHg based on RA pressure of 8 mmHg. Regarding patient's left carotid artery stenosis, he was asymptomatic: Per vascular surgery team, the patient's syncopal episodes are unlikely related to his findings of left carotid stenosis. As there was some discrepancy between the CTA and the MRA; however, given the low percentage of the stenosis, MRA tends to exaggerate the percentage of stenosis at times. They did not recommend for any vascular intervention at this time and would continue with the current cardiac workup. Patient ambulate with assistance from physical therapy, tolerating p.o. diet, and will be discharged home today in improved condition, see below for full list of discharge medications. Regarding his tricuspid and mitral regurgitations, cardiology team recommended continue medical management at this time. Home Meds Active Scripts Lisinopril* (Zestril*) 5 Mg Tab, 5 MG PO BID, #30 3 Refills Prov:MACKENZIEBLAIR 10/18/14 Reported Medications Amlodipine Besylate* (Amlodipine Besylate*) 10 Mg Tablet, 10 MG PO DAILY, #30 TAB 07/13/17 Apixaban* (Eliquis*) 2.5 Mg Tablet, 2.5 MG PO BID, TAB 07/13/17 Discontinued Reported Medications Warfarin Sodium* (Coumadin*) 2.5 Mg Tablet, 2.5 MG PO DIRECTED 09/14/12 Discontinued Scripts Tramadol Hcl* (Ultram*) 50 Mg Tablet, 50 MG PO Q6H Y for PAIN, #20 TAB Prov:LEKKOS,SHELLISTOLOS A. DO 02/24/16 Diphenoxylate Hcl-Atropine (Lomotil) 1 Tab Tablet, 1 TAB PO QID Y for DIARRHEA, #10 TAB Prov:LEKKOS,APOSTOLOS A. DO 02/24/16 Metronidazole* (Flagyl*) 500 Mg Tablet, 500 MG PO TID for 7 Days, TAB Prov:LEKKOS,APOSTOLOS A. DO 02/24/16 Ciprofloxacin Hcl* (Ciprofloxacin Hcl*) 500 Mg Tablet, 500 MG PO BID for 7 Days , TAB Prov:LEKKOS,APOSTOLOS A. DO 02/24/16 Amlodipine Besylate* (Norvasc*) 5 Mg Tab, 5 MG PO DAILY, #30 3 Refills Prov:BLAIR MANN 10/18/14 Follow-up Plan Please take your medications as prescribed, please see her regular doctor in the clinic in the next 1-2 weeks. Primary Care Provider CECE Mora Jul 16, 2017 12:57
--- NOTE | 2017-07-16 13:56 | CONS ---
Date/Time of Note Date/Time of Note DATE: 07/16/17 TIME: 13:51 Assessment/Plan Assessment/Plan Chief Complaint/Hosp Course 82 yo male with history of afib on Apixaban p/w pre-syncope with fall, no LOC or seizure activity ruled out for CVA. MRI Brain no acute infarcts, chronic right frontal and parietal operculum insula and schmidt radiata Recommend: continue current management continue AC maintain normotensive blood pressure may follow up w neurology as outpatient dc planned today Problems: Consultation Date/Type/Reason Admit Date/Time Jul 13, 2017 at 12:55 Date of Consultation: Jul 16, 2017 Type of Consultation: Neurology Reason for Consultation dizziness syncope eval Referring Provider: SANGEETHA JOSEPH MD Hx of Present Illness 82 yo male with hx of afib previously on Coumadin now on low rao apixaban with history of prior Right MCA stroke admitted with symptoms of lightheadedness and possible syncope associated with fall without LOC. Further imaging showed asymptomatic left carotid stenosis, no significant hemodynamic stenosis on further imaging evaluated by vascular surgery. He denies similar sx in the past. MRI Brain shows prior stroke no acute infarcts. He is back to baseline, no further complaints. Constitutional: no complaints Past Medical History Medical History: hypertension Social History Smoking Status: Former smoker Exam/Review of Systems Vital Signs Vitals Vital Signs Date Time Temp Pulse Resp B/P Pulse Ox O2 Delivery O2 Flow Rate FiO2 07/16/17 12:02 77 07/16/17 11:59 97.4 18 154/79 96 07/15/17 20:00 Nasal Cannula 2.0 Intake and Output 07/15/17 07/15/17 07/16/17 15:00 23:00 07:00 Intake Total 350 ml 240 ml Balance 350 ml 240 ml Exam Neurological: PODIATRY PROFESSOR II-XII intact, nl mental status, nl speech, nl strength ( mild ) Results Result Diagram: 07/14/17 0607/14/17626 Medications Medications Current Medications Apixaban (Eliquis) 2.5 mg BID PO Last administered on 07/16/17 12:20; Admin Dose 2.5 MG; Start 07/13/17 at 21:00 Lisinopril (Zestril) 5 mg BID PO Last administered on 07/14/17 08:47; Admin Dose 5 MG; Start 07/13/17 at 21:00; Status Future Hold Aspirin (Aspirin) 81 mg DAILY PO Last administered on 07/16/17t 08:47; Admin Dose 81 MG; Start 07/14/17 at 09:00 Acetaminophen (Tylenol Tab) 650 mg Q6H PRN PO PAIN LEVEL 1-3 OR FEVER; Start 07/13/17 at 20:00 Acetaminophen/ Hydrocodone Bitart ([place] (5/325)) 1 tab Q6H PRN PO PAIN LEVEL 4 -6; Start 07/13/17 at 20:00 Docusate Sodium (Colace) 100 mg Q12H PRN PO CONSTIPATION; Start 07/13/17 at 20 :00 Magnesium Hydroxide (Milk Of Mag) 30 ml DAILY PRN PO CONSTIPATION; Start 07/13 at 20:00 Bisacodyl (Dulcolax) 5 mg DAILY PRN PO CONSTIPATION; Start 07/13/17 at 20:00 SALINA GRAYSON MD Jul 16, 2017 13:56
--- NOTE | 2017-07-16 16:33 | PN ---
Date/Time of Note Date/Time of Note DATE: 07/16/17 TIME: 16:31 Assessment/Plan Lines/Catheters IV Catheter Type (from [facility]): Saline Lock Fair in Place (from [facility]): No Assessment/Plan Chief Complaint/Hosp Course -Left carotid artery stenosis, asymptomatic: It seems the patient's syncopal episodes are unlikely related to his findings of left carotid stenosis. There is some discrepancy between the CTA and the MRA; however, given the low percentage of the stenosis, MRA tends to exaggerate the percentage of stenosis at times. Would not recommend for any vascular intervention at this time and would continue with vascular surveillance Optimize vascular status (BP meds, diet, nutrition, exercise, sugar control, antiplatelets). Discussed findings, plan and management with the patient and the primary service. Thank you for allowing us to partake in the care of your patient. Please call with any questions. Problems: Subjective 24 Hr Interval Summary Constitutional: no complaints Exam/Review of Systems Vital Signs Vitals Vital Signs Date Time Temp Pulse Resp B/P Pulse Ox O2 Delivery O2 Flow Rate FiO2 07/16/17 16:08 96 07/16/17 15:39 98.2 16 131/63 94 07/15/17 20:00 Nasal Cannula 2.0 Intake and Output 07/15/17 07/15/17 07/16/17 15:00 23:00 07:00 Intake Total 350 ml 240 ml Balance 350 ml 240 ml Exam Free Text/Dictation GENERAL: Alert and awake. No apparent distress. Cranial nerves II through XII are intact. NECK: Supple, no carotid bruit. PULMONARY: Clear to auscultation bilaterally. No crackles. CARDIOVASCULAR: S1, S2 present. No murmurs. ABDOMEN: Soft, nontender, nondistended. Bowel sounds positive. EXTREMITIES: Lower extremities, palpable femoral pulse, faint pedal pulse. Motor, sensory intact. Cap refill 2 to 3 seconds. Results Result Diagram: 07/14/17 0626 07/14/17 0627 SANGEETHA JOSEPH MD Jul 16, 2017 16:33
== END 2017-07-16 16:35 | disposition home health service (06) | DRG 312 ==
LOC: E/R 10:41 → TEL 12:55 → OBSVTOIN 07-15 14:10
PROVIDERS: ADMIT Internal Medicine; ATTEND Internal Medicine
DX: R55 Syncope and collapse (principal); I48.2 Chronic atrial fibrillation; J44.9 Chronic obstructive pulmonary disease, unspecified; I07.1 Rheumatic tricuspid insufficiency; I34.0 Nonrheumatic mitral (valve) insufficiency; I65.22 Occlusion and stenosis of left carotid artery; I48.91 Unspecified atrial fibrillation; I10 Essential (primary) hypertension; R63.4 Abnormal weight loss; Z86.73 Personal history of transient ischemic attack (TIA), and cerebral infarction without residual deficits; Z87.891 Personal history of nicotine dependence; Z79.01 Long term (current) use of anticoagulants
CPT/HCPCS: 36415; 70450; 70498; 70546; 70549; 70553; 71010; 74176; 80048; 80053; 80061; 80307; 81001; 82607; 82746; 83036; 84075; 84443; 84484; 85025; 85610; 85730; 86703; 90686; 92526; 92610; 93005; 93306; 96374; 97110; 97116; 97162; 97167; 97530; G0378; J1630; J2405; Q9967

== ENCOUNTER 2018-12-12 16:07 | Inpatient (IN) | payer MEDICARE, OTHER ==
[~2018-12-12] VITALS: Ht 180.3 cm; Wt 55.8 kg
[~2018-12-12 16:07] MED LIST changes: +AMLO-147 PO; -AMLO5TAB4 PO; +APIX2.5T PO; -CIPR500T4 PO; -DIPH-232 PO; -METR500T PO; -TRAM-40 PO; -WARF2.5T PO
[2018-12-12] MEDS ORDERED: SOD CHLORIDE 0.9% 1,000 ML IV STA (21:24)
[2018-12-12] MEDS ORDERED: DIPHTH/TET/ACEL PERTUSS (ADULT) 0.5 ML VIAL IM* ONE (21:30)
--- NOTE | 2018-12-12 22:55 | ERD ---
ER Documentation Chief Complaint Chief Complaint Weakness and left elbow injury HPI 83-year-old gentleman who presents with family member who gives the history. The patient has had a gradual decline over 1-2-week timeframe where he has been generally weak, not eating, having difficulty getting out of bed. The patient fell out of bed earlier today and landed on his left arm. The patient is a skin tear of the left elbow. Patient has not had any headaches chest pain or shortness of breath though he does have a history of strokes and does take Coumadin. Unknown tetanus status. No report of nausea vomiting chest pain or shortness of breath. ROS All systems reviewed and are negative except as per history of present illness. Medications Home Meds Active Scripts Lisinopril* (Zestril*) 5 Mg Tab, 5 MG PO BID, #30 3 Refills Prov:BLAIR MANN 10/18/14 Reported Medications Amlodipine Besylate* (Amlodipine Besylate*) 10 Mg Tablet, 10 MG PO DAILY, #30 TAB 07/13/17 Apixaban* (Eliquis*) 2.5 Mg Tablet, 2.5 MG PO BID, TAB 07/13/17 Allergies Allergies: Coded Allergies: No Known Drug Allergy (Verified Allergy, Unknown, 07/13/17) PMhx/Soc History of Surgery: Yes (lobectomy 40 years ago) Anesthesia Reaction: No (unknown) Hx Neurological Disorder: Yes (CVA 2010) Hx Respiratory Disorders: Yes (COPD) Hx Cardiac Disorders: Yes (chronic afib) Hx Psychiatric Problems: No Hx Miscellaneous Medical Probl: Yes (See EMR) Hx Alcohol Use: No Hx Substance Use: No Hx Tobacco Use: Yes Smoking Status: Former smoker FmHx Family History: No diabetes Physical Exam Vitals Vital Signs Date Temp Pulse Resp B/P (MAP) Pulse Ox O2 O2 Flow FiO2 Time Delivery Rate 12/12/18 99.6 75 16 126/66 97 Room Air 21:41 (86) 12/12/18 70 16 128/79 96 Room Air 20:20 (95) 12/12/18 99.6 75 18 124/59 97 16:38 (80) Physical Exam General: Cachectic Head: Normocephalic, atraumatic. Eyes: Pupils equally reactive, EOM intact ENT: Dry mucous membranes no midline tenderness, deformities, step-offs to the cervical spine, full active and passive range of motion without midline pain. Neck: Supple, no lymphadenopathy, Respiratory: Lungs clear bilaterally, no distress Cardiovascular: RRR, no murmurs, rubs, or gallops Abdominal: Soft, non-tender, non-distended, no peritoneal signs : Deferred MSK: An abrasion is noted to the left elbow with full active and passive range of motion of the joint. No bony abnormalities. 2+ radial and ulnar pulses. The patient has an abrasion and very superficial skin tear to the lateral aspect of the left upper extremity near the elbow. Based the wound is easily visualized, no laceration. Neurologic: Alert and oriented, moving all extremities, normal speech, no focal weakness, no cerebellar signs Skin: No rash Psych: Normal mood Result Diagram: 12/12/18212912/12/182129 Results 24 hrs Laboratory Tests Test 12/12/18 21:30 12/12/18 21:40 12/12/18 23:02 White Blood Count 18.5 10^3/ul Red Blood Count 4.40 10^6/ul Hemoglobin 12.7 g/dl Hematocrit 38.2 % Mean Corpuscular Volume 86.8 fl Mean Corpuscular Hemoglobin 28.9 pg Mean Corpuscular 33.2 g/dl Hemoglobin Concent Red Cell Distribution Width 15.3 % Platelet Count 456 10^3/UL Mean Platelet Volume 9.0 fl Immature Granulocytes % 0.600 % Neutrophils % 80.9 % Lymphocytes % 11.1 % Monocytes % 7.0 % Eosinophils % 0.1 % Basophils % 0.3 % Nucleated Red Blood Cells % 0.0 /100WBC Immature Granulocytes # 0.120 10^3/ul Neutrophils # 15.0 10^3/ul Lymphocytes # 2.1 10^3/ul Monocytes # 1.3 10^3/ul Eosinophils # 0.0 10^3/ul Basophils # 0.1 10^3/ul Nucleated Red Blood Cells # 0.0 10^3/ul Prothrombin Time 19.8 Sec Prothrombin Time Ratio 1.5 INR International 1.67 Normalized Ratio Activated Partial Thromboplast 49.3 Sec Time Sodium Level 138 mmol/L Potassium Level 5.0 mmol/L Chloride Level 104 mmol/L Carbon Dioxide Level 23 mmol/L Anion Gap 11 Blood Urea Nitrogen 39 mg/dl Creatinine 1.39 mg/dl Est Glomerular Filtrat mL/min Rate mL/min Glucose Level 114 mg/dl Calcium Level 9.9 mg/dl Total Bilirubin 0.3 mg/dl Direct Bilirubin 0.00 mg/dl Indirect Bilirubin 0.3 mg/dl Aspartate Amino 16 IU/L Transf (AST/SGOT) Alanine < 6 IU/L Aminotransferase (ALT/SGPT) Alkaline Phosphatase 110 IU/L Troponin I < 0.012 ng/ml Total Protein 8.7 g/dl Albumin 3.9 g/dl Globulin 4.80 g/dl Albumin/Globulin Ratio 0.81 Free Thyroxine Index 2.58 ug/ml Thyroxine (T4) 6.8 ug/dl Triiodothyronine (T3) Uptake 37.9 % Ethyl Alcohol Level < 10.0 mg/dl Bedside Glucose 92 mg/dL Urine Color YELLOW Urine Clarity TURBID Urine pH 5.0 Urine Specific [place] 1.013 Urine Ketones NEGATIVE mg/dL Urine Nitrite NEGATIVE mg/dL Urine Bilirubin NEGATIVE mg/dL Urine Urobilinogen NEGATIVE mg/dL Urine Leukocyte Esterase 3+ Oracio/ul Urine Microscopic RBC 121 /HPF Urine Microscopic WBC > 182 /HPF Urine Bacteria MANY /HPF Urine Mucus FEW /HPF Urine Hemoglobin 3+ mg/dL Urine Glucose NEGATIVE mg/dL Urine Total Protein 2+ mg/dl Urine Opiates Screen Negative Urine Barbiturates Negative Urine Amphetamines Screen Negative Urine Benzodiazepines Screen Negative Urine Cocaine Screen Negative Urine Cannabinoids Negative Current Medications Medications Dose Sig/Luci Start Time Status Last (Trade) Ordered Route PRN Stop Time Admin Dose Reason Admin Sodium 1,000 ml @ Q1H STAT 12/12/18 DC 12/12/18 Chloride 1,000 mls/hr IV 21:24 22:10 12/12/18 22:23 Diphtheria/ 0.5 ml ONCE ONCE 12/12/18 DC 12/12/18 Tetanus/Acell IM* 21:30 22:10 Pertussis 12/12/18 21:31 (Adacel) Ceftriaxone 50 ml @ ONCE ONCE 12/13/18 12/12/18 Sodium 100 mls/hr IVPB 00:00 23:37 12/13/18 00:29 Ondansetron 4 mg BRIDGE ORDER 12/13/18 HCl (Zofran PRN IV 00:00 Inj) NAUSEA/VOMITI 12/13/18 23:59 NG 650 mg ER BRIDGE 12/13/18 Acetaminophen PRN PO 00:00 (Tylenol .MILD PAIN 12/13/18 23:59 Tab) 1-3 OR TEMP Procedures/MDM EKG, MONITORS, & DIAGNOSTIC IMAGING: EKG: I reviewed and interpreted a 12-lead EKG. Rhythm: Normal sinus rhythm, sinus arrhythmia, PVCs ST Changes: No contiguous ST segment elevations T waves: No contiguous T wave inversions Impression: Abnormal EKG Chest x-ray: I reviewed and interpreted a 1 view of the chest Mediastinum: No enlargement Cardiac silhouette: No cardiomegaly Airspace: Clear lung bean bilaterally without evidence of pneumothorax Bones: No evidence of fracture X-ray left elbow: I reviewed and interpreted multiple views of the x-ray Bones: No evidence of acute fracture dislocation or subluxation Soft tissue: No evidence of foreign body CT brain: IMPRESSION: 1. Age-appropriate involutional change. 2. Old right MCA distribution infarct with encephalomalacia and gliosis. 3. Old a small left frontal lobe infarcts. Number foreign bilateral external auditory canal debris. Otoscopic evaluation and removal suggested. LAB INTERPRETATION: I reviewed the laboratory testing and it shows leukocytosis of unclear etiology UTI MEDICAL DECISION MAKING: Patient presents with generalized weakness and decline over a subacute timeframe. He did have a fall he does take Coumadin CT imaging of the brain would be appropriate though no description of head injury. He has a small skin tear to the left lateral aspect of the arm without evidence of fracture. The wound is well-appearing, very superficial. Localized wound care provided. Tetanus updated. Given the patient's weakness, leukocytosis inpatient hospitalization would likely be appropriate. Blood cultures taken. The patient does not meet Sirs criteria in the emergency room setting. ER COURSE: * Patient hydrated, blood cultures taken * Wound care provided, tetanus updated * Urinary tract infection found. Ceftriaxone given. No Sirs criteria. Blood cultures and urine culture sent. CONSULTATION: None DISPOSITION PLAN: Accepting care team and consultations: I discussed the current laboratory data, diagnostic imaging and emergency care provided. Admitting team: Dr. Becerra Admitting team indication: Insurance directed Departure Diagnosis: Primary Impression: Urinary tract infection Urinary tract infection type: acute cystitis Hematuria presence: without hematuria Qualified Codes: N30.00 - Acute cystitis without hematuria Additional Impressions: Generalized weakness Dehydration Leukocytosis Leukocytosis type: unspecified Qualified Codes: D72.829 - Elevated white blood cell count, unspecified Condition: Stable TRIXIE CALI MD Dec 12, 2018 22:55
[2018-12-13] MEDS ORDERED: CEFTRIAXONE 1 GM/50 ML (PMX) 50 ML IVPB ONE
[2018-12-13] MEDS ORDERED: ACETAMINOPHEN 325 MG TAB PO PRN ×2 (00:30)
[2018-12-13] MEDS ORDERED: BISACODYL (EC) 5 MG TAB PO PRN (00:30)
[2018-12-13] MEDS ORDERED: ONDANSETRON 4 MG INJ IV PRN ×2 (00:30)
[2018-12-13] MEDS ORDERED: NACL 0.9% 3 ML SYG IV SCH (00:30)
[2018-12-13] MEDS ORDERED: DOCUSATE SODIUM 100 MG CAP PO PRN (00:30)
[2018-12-13 00:38] VITALS: Ht 180.3 cm; Wt 55.8 kg
[2018-12-13 00:42] VITALS: BP 120/67; PULSE 73; RESP 17
[2018-12-13] MEDS ORDERED: PENDING SANTYL ORDER FOR WOUND CARE XX PRN (01:00)
[2018-12-13 07:45] VITALS: BP 95/64; PULSE 60; RESP 18
--- NOTE | 2018-12-13 09:15 | HP ---
Date/Time of Note Date/Time of Note DATE: 12/13/18 TIME: 09:05 Assessment/Plan VTE Prophylaxis SCD applied (from Nsg): Yes Pharmacological prophylaxis: NA/contraindicated Pharm contraindication: low risk/ambulating Lines/Catheters IV Catheter Type (from Nrsg): Saline Lock Urinary Cath still in place: No Assessment/Plan Hospital Course This is a 83-year-old male being admitted to the [facility] floor for: #1 generalized weakness: Secondary likely to underlying urinary tract infection, dehydration. Hydrate the patient. Encourage p.o. intake. Ceftriaxone 1 g every 24 hours, culture results are pending #2 ground-level fall: Denies loss of consciousness or head trauma. Patient did have a tear of the left upper extremity. Wound care consult. Wrapping at the current time. PT evaluation. CT of the brain does not show any acute abnormalities. Will check carotid Dopplers as well. #3 paroxysmal A. fib: Currently in sinus rhythm. Continue Eliquis. #4 history of CVA: No residual deficits, #5 SHANTA likely secondary to: Dehydration, JENNY inhibitor effect. At the current time will hold blood pressure medications. Hydrate the patient with normal saline. Monitor renal function. #6 hypertension: We will hold home blood pressure medications at the current t lina, PRN hydralazine for systolic greater than 170. Orthostatics vital signs. #7 left upper extremity skin tear: Status post ground-level fall. Wound care consult. #8 DVT GI prophylaxis: SCDs, no GI prophylaxis indicated Further treatment strategy will be implemented as per clinical course Result Diagram: 12/13/18 0458 12/13/18 0458 Results 24hrs Laboratory Tests Test 12/12/18 21:30 12/12/18 21:40 12/12/18 23:02 12/13/18 04:58 White Blood Count 18.5 #H 14.2 #H Red Blood Count 4.40 L 3.87 L Hemoglobin 12.7 L 11.2 L Hematocrit 38.2 L 33.4 L Mean Corpuscular 86.8 86.3 Volume Mean Corpuscular 28.9 L 28.9 L Hemoglobin Mean Corpuscular 33.2 33.5 Hemoglobin Concent Red Cell 15.3 H 15.6 H Distribution Width Platelet Count 456 #H 402 Mean Platelet Volume 9.0 9.7 Immature 0.600 H 0.300 Granulocytes % Neutrophils % 80.9 H 73.4 Lymphocytes % 11.1 L 15.1 Monocytes % 7.0 10.5 Eosinophils % 0.1 0.3 Basophils % 0.3 0.4 Nucleated Red Blood 0.0 0.0 Cells % Immature 0.120 H 0.040 H Granulocytes # Neutrophils # 15.0 H 10.4 H Lymphocytes # 2.1 2.1 Monocytes # 1.3 H 1.5 H Eosinophils # 0.0 0.0 Basophils # 0.1 0.1 Nucleated Red Blood 0.0 0.0 Cells # Prothrombin Time 19.8 H Prothrombin Time 1.5 Ratio INR International 1.67 Normalized Ratio Activated 49.3 H Partial Thromboplast Time Sodium Level 138 137 Potassium Level 5.0 4.6 Chloride Level 104 102 Carbon Dioxide Level 23 24 Anion Gap 11 11 Blood Urea Nitrogen 39 H 37 H Creatinine 1.39 H 1.28 H Est Glomerular Filtrat Rate mL/min Glucose Level 114 118 Calcium Level 9.9 8.7 Total Bilirubin 0.3 0.3 Direct Bilirubin 0.00 0.00 Indirect Bilirubin 0.3 0.3 Aspartate Amino 16 14 L Transf (AST/SGOT) Alanine < 6 L 7 L Aminotransferase (AL T/SGPT) Alkaline Phosphatase 110 84 Troponin I < 0.012 Total Protein 8.7 H 7.1 # Albumin 3.9 3.2 L Globulin 4.80 H 3.90 H Albumin/Globulin 0.81 0.82 Ratio Free Thyroxine Index 2.58 Thyroxine (T4) 6.8 Triiodothyronine 37.9 (T3) Uptake Ethyl Alcohol Level < 10.0 H Bedside Glucose 92 Urine Color YELLOW Urine Clarity TURBID A Urine pH 5.0 Urine Specific 1.013 [place] Urine Ketones NEGATIVE Urine Nitrite NEGATIVE Urine Bilirubin NEGATIVE Urine Urobilinogen NEGATIVE Urine Leukocyte 3+ H Esterase Urine Microscopic 121 H RBC Urine Microscopic > 182 H WBC Urine Bacteria MANY A Urine Mucus FEW A Urine Hemoglobin 3+ H Urine Glucose NEGATIVE Urine Total Protein 2+ H Urine Opiates Screen Negative Urine Barbiturates Negative Urine Amphetamines Negative Screen Urine Negative Benzodiazepines Screen Urine Cocaine Screen Negative Urine Cannabinoids Negative Hemoglobin A1c 5.9 Magnesium Level 2.0 Thyroid Stimulating 0.946 Hormone (TSH) HPI/ROS Admit Date/Time Admit Date/Time Dec 12, 2018 at 23:40 Hx of Present Illness Chief complaint: Weakness, recent fall without loss of consciousness This is a 83-year-old male who presented to the emergency department after having difficulty getting out of bed. He stated that he did slide out of bed but denies any loss of consciousness or any trauma to the head. He states that he has been weak over the last 1-2 weeks and not been eating. When he did slide out of the bed today he did land on his left arm and sustained a wound. He denies any headaches or chest pain. He has a history of stroke and is currently on Eliquis. Denies any chest pain or nausea vomiting. Allergies: NKDA Medications: See SHADIA NAYAK Const as per HPI Eyes : No pain discharge or redness or change in visual acuity ENT: No pain, sore throat, congestion, congestion, dysphagia or discharge Respiratory: No shortness of breath, cough, sputum, wheezing, or pleuritic pain Cardiovascular: No chest pain, palpitation, PND, or edema GI : no change in appetite, abdominal pain, nausea, vomiting, diarrhea, constipation, or change in the color his stool Genitourinary: No dysuria, hematuria, flank pain , discharge or CVA tenderness Musculoskeletal: As per HPI Skin: No rash, bruising or hives Neuro: As per HPI Endocrine: No polyuria, polydipsia, temperature intolerance Psych: No hallucination, depression, anxiety or suicidal ideation PMH/Family/Social Past Medical History Hypertension, history of A. fib, COPD, CVA Medications Current Medications Ondansetron HCl (Zofran Inj) 4 mg BRIDGE ORDER PRN IV NAUSEA/VOMITING; Start 12/13/18 at 00:00; Stop 12/13/18 at 23:59 Acetaminophen (Tylenol Tab) 650 mg ER BRIDGE PRN PO .MILD PAIN 1-3 OR TEMP; Start 12/13/18 at 00:00; Stop 12/13/18 at 23:59 IV Flush (NS 3 ml) 3 ml PER PROTOCOL IV ; Start 12/13/18 at 00:30 Ondansetron HCl (Zofran Inj) 4 mg Q6H PRN IV NAUSEA/VOMITING; Start 12/13/18 at 00:30 Acetaminophen (Tylenol Tab) 650 mg Q6H PRN PO .PAIN 1-3 OR TEMP; Start 12/13/18 at 00:30 Docusate Sodium (Colace) 100 mg Q12H PRN PO .CONSTIPATION; Start 12/13/18 at 00:30 Bisacodyl (Dulcolax) 5 mg DAILY PRN PO .CONSTIPATION; Start 12/13/18 at 00:30 Miscellaneous Information (Pending [facility] Order For Wound Care) This patient lieberman... PRN PRN XX WOUND CARE; Start 12/13/18 at 01:00 Coded Allergies: No Known Drug Allergy (Verified Allergy, Unknown, 07/13/17) Past Surgical History Lobectomy Family History Significant Family History: no pertinent family hx Social History Smoking Status: Former smoker Exam/Review of Systems Vital Signs Vitals Vital Signs Date Temp Pulse Resp B/P (MAP) Pulse Ox O2 O2 Flow FiO2 Time Delivery Rate 12/13/18 60 18 95/64 (74) 99 Room Air 07:45 12/13/18 98.8 00:42 Intake and Output 12/12/18 12/12/18 12/13/18 1515:00 23:00 07:00 IntakeIntake Total 240 ml OutputOutput Total 200 ml BalanceBalance 40 ml Exam Exam General: Patient is a pleasant male, lying in bed he does appear slightly lethargic but he is conversive. HEENT: Atraumatic, normocephalic. The pupils are equal, round and reactive. Extraocular motor are intact Neck: Supple with full range of motion. No rigidity or meningismus Chest: Nontender Lungs: Clear to auscultation bilaterally no crackles rales or wheezing Heart: Normal S1-S2, Regular rhythm and rate. Abdomen: Soft , nontender, nondistended , bowel sounds are present. No guarding no rebound tenderness , No masses or organomegaly. No costovertebral temporal angle mass Extremities: Left upper extremity wound of the elbow currently wrapped Neurologic: Normal mental status, speech normal, cranial nerves II through XII are intact, motor and sensory are intact, Additional Comments EKG: Rhythm: Normal sinus rhythm, sinus arrhythmia, PVCs ST Changes: No contiguous ST segment elevations T waves: No contiguous T wave inversions Impression: Abnormal EKG AMENDMENT: 12/12/2018 8:48:08 PM Abraham Cespedes M.d Addendum: The last impression should read as follows: 3. Old small left frontal lobe infarcts. 4. Bilateral external auditory canal debris. Otoscopic evaluation and extraction recommended. PROCEDURE: CT Brain without contrast. CLINICAL INDICATION: 83-year-old. Altered mental status. TECHNIQUE: A CT of the brain was performed on a multi-slice CT scanner utilizing axial imaging from the skull base through the vertex without IV contrast. Multiplanar reformatted images were made. Images were reviewed on a PACS workstation. One or more the following dose reduction techniques were utilized: Automated exposure control, adjustment of mA/ or kV according to patient's size, or use of iterative reconstruction technique. DICOM images are available for review. The CTDIvol is 38.97 mGy and the DLP is 634.23 mGycm. COMPARISON: CT brain 07/13/2017 FINDINGS: Cerebral and cerebellar volume loss. Old infarct involving portions of the right frontal and anterior temporal lobes, the insular cortex, sub insular tracts and lateral right basil ganglia with ex vacuo enlargement of the right lateral ventricle. No acute intra-axial or extra-axial hemorrhage. No subdural collection. [place] - white matter differentiation is maintained. Old posterior right frontal subcortical and deep white matter infarct near the vertex. Small subcortical and deep white matter infarct posterior lateral left frontal lobe. Chronic left maxillary sinus disease. Minimal right mastoid air cell disease. Bilateral external auditory canal cerumen. IMPRESSION: 1. Age-appropriate involutional change. 2. Old right MCA distribution infarct with encephalomalacia and gliosis. 3. Old a small left frontal lobe infarcts. Number foreign bilateral external auditory canal debris. Otoscopic evaluation and removal suggested. RPTAT: HLRS Physician Kelvin Date Time Electronically viewed and signed by Physician Kelvin on 12/12/2018 23:49 RS/ CC: TRXIIE CALI MD [id number] PROCEDURE: XR Chest. CLINICAL INDICATION: Chest pain TECHNIQUE: Single frontal view of the chest was obtained COMPARISON: CR CHEST 10/15/2014 FINDINGS: The heart is enlarged. The thoracic aorta is calcified. There is volume loss and extensive chronic infiltrates in the left lung, unchanged. There is no pleural effusion or pneumothorax. RPTAT: AA IMPRESSION: Mild cardiomegaly. Calcified aorta consistent with atherosclerotic disease. Volume loss and extensive chronic infiltrates in the left lung, unchanged. .Naeem De Souza MD, Date Time Electronically viewed and signed by .Naeem De Souza MD, on 12/12/2018 22:22 .S/ CC: TRIXIE CALI MD [id number] PROCEDURE: DX Elbow. CLINICAL INDICATION: Fell. Left elbow pain. TECHNIQUE: 3 views COMPARISON: None. FINDINGS: Osseous structures: Normal bone mineralization. No acute fracture. No lytic or blastic changes. Joint space: No dislocation. No significant joint effusion. Soft tissues: Normal appearing soft tissues. No radiopaque foreign body or soft tissue gas. IMPRESSION: No acute changes. RPTAT: HLRS Physician Kelvin Date Time Electronically viewed and signed by Physician Kelvin on 12/12/2018 23:49 RS/ CC: TRIXIE CALI MD [id number] PATRICIA MARTINEZ Dec 13, 2018 09:15
[2018-12-13] MEDS ORDERED: SOD CHLORIDE 0.9% 500 ML IV ONE (09:30)
[2018-12-13] MEDS: APIXABAN 5 MG TABLET PO SCH ×2 (11:10→20:23)
--- NOTE | 2018-12-13 13:22 | PN ---
Date/Time of Note Date/Time of Note DATE: 12/13/18 TIME: 13:17 Assessment/Plan VTE Prophylaxis Risk score (from Ns)>0 risk: 6 SCD applied (from Ns): Yes Pharmacological prophylaxis: apixaban Lines/Catheters IV Catheter Type (from Nrsg): Peripheral IV Urinary Cath still in place: No Assessment/Plan Assessment/Plan 1. Left elbow pain - patient accidently rolled off the bed. Xrays noted and reviewed with patient - pain control - CT head negative for acute hemorrhage given patient on Eliquis 2. UTI - patient admits to frequency - will continue on Ceftriaxone and await urine cx sensitivities - IVF continued 3. h/o afib - patient is current rate controlled. Continue current medications 4. H/o CVA - no residual defects noted - PT/OT consulted 5. SHANTA - most likely prerenal - improving on IVF - avoid nephrotoxic agents 6. HTN - will restart when able. Hold BP for now given low BP 7. Left upper extremity skin tear: Status post ground-level fall - Wound care consult. 8. Disposition - Await urine culture sensitivities and PT evaluation pending Result Diagram: 12/13/18 0458 12/13/18 0458 Results 24hrs Laboratory Tests Test 12/12/18 21:30 12/12/18 21:40 12/12/18 23:02 12/13/18 04:58 White Blood Count 18.5 #H 14.2 #H Red Blood Count 4.40 L 3.87 L Hemoglobin 12.7 L 11.2 L Hematocrit 38.2 L 33.4 L Mean Corpuscular 86.8 86.3 Volume Mean Corpuscular 28.9 L 28.9 L Hemoglobin Mean Corpuscular 33.2 33.5 Hemoglobin Concent Red Cell 15.3 H 15.6 H Distribution Width Platelet Count 456 #H 402 Mean Platelet Volume 9.0 9.7 Immature 0.600 H 0.300 Granulocytes % Neutrophils % 80.9 H 73.4 Lymphocytes % 11.1 L 15.1 Monocytes % 7.0 10.5 Eosinophils % 0.1 0.3 Basophils % 0.3 0.4 Nucleated Red Blood 0.0 0.0 Cells % Immature 0.120 H 0.040 H Granulocytes # Neutrophils # 15.0 H 10.4 H Lymphocytes # 2.1 2.1 Monocytes # 1.3 H 1.5 H Eosinophils # 0.0 0.0 Basophils # 0.1 0.1 Nucleated Red Blood 0.0 0.0 Cells # Prothrombin Time 19.8 H Prothrombin Time 1.5 Ratio INR International 1.67 Normalized Ratio Activated 49.3 H Partial Thromboplast Time Sodium Level 138 137 Potassium Level 5.0 4.6 Chloride Level 104 102 Carbon Dioxide Level 23 24 Anion Gap 11 11 Blood Urea Nitrogen 39 H 37 H Creatinine 1.39 H 1.28 H Est Glomerular Filtrat Rate mL/min Glucose Level 114 118 Calcium Level 9.9 8.7 Total Bilirubin 0.3 0.3 Direct Bilirubin 0.00 0.00 Indirect Bilirubin 0.3 0.3 Aspartate Amino 16 14 L Transf (AST/SGOT) Alanine < 6 L 7 L Aminotransferase (AL T/SGPT) Alkaline Phosphatase 110 84 Troponin I < 0.012 Total Protein 8.7 H 7.1 # Albumin 3.9 3.2 L Globulin 4.80 H 3.90 H Albumin/Globulin 0.81 0.82 Ratio Free Thyroxine Index 2.58 Thyroxine (T4) 6.8 Triiodothyronine 37.9 (T3) Uptake Ethyl Alcohol Level < 10.0 H Bedside Glucose 92 Urine Color YELLOW Urine Clarity TURBID A Urine pH 5.0 Urine Specific 1.013 Brogan Urine Ketones NEGATIVE Urine Nitrite NEGATIVE Urine Bilirubin NEGATIVE Urine Urobilinogen NEGATIVE Urine Leukocyte 3+ H Esterase Urine Microscopic 121 H RBC Urine Microscopic > 182 H WBC Urine Bacteria MANY A Urine Mucus FEW A Urine Hemoglobin 3+ H Urine Glucose NEGATIVE Urine Total Protein 2+ H Urine Opiates Screen Negative Urine Barbiturates Negative Urine Amphetamines Negative Screen Urine Negative Benzodiazepines Screen Urine Cocaine Screen Negative Urine Cannabinoids Negative Hemoglobin A1c 5.9 Magnesium Level 2.0 Thyroid Stimulating 0.946 Hormone (TSH) Subjective 24 Hr Interval Summary Free Text/Dictation Patient denies any acute issues and continues thanking staff for his care. He states he rolled off the bed and hurt his elbow but denies any LOC, headache, chest pain, or SOB. Exam/Review of Systems Exam Vitals Vital Signs Date Temp Pulse Resp B/P (MAP) Pulse Ox O2 O2 Flow FiO2 Time Delivery Rate 12/13/18 60 18 95/64 (74) 99 Room Air 07:45 12/13/18 98.8 00:42 Intake and Output 12/12/18 12/12/1812/13/19 1515:00 23:00 07:00 IntakeIntake Total 240 ml OutputOutput Total 200 ml BalanceBalance 40 ml Exam General: no acute distress. awake and answering questions appropriately Neck: Supple Chest: Nontender Lungs: Clear to auscultation bilaterally no crackles rales or wheezing Heart: Normal S1-S2, Irregular rhythm, regular rate Abdomen: Soft , nontender, nondistended , bowel sounds are present. No guarding no rebound tenderness Extremities: Left upper extremity wound of the elbow currently wrapped, mildly tender to palpation Results Results 24hrs Laboratory Tests Test 12/12/18 21:30 12/12/18 21:40 12/12/18 23:02 12/13/18 04:58 White Blood Count 18.5 #H 14.2 #H Red Blood Count 4.40 L 3.87 L Hemoglobin 12.7 L 11.2 L Hematocrit 38.2 L 33.4 L Mean Corpuscular 86.8 86.3 Volume Mean Corpuscular 28.9 L 28.9 L Hemoglobin Mean Corpuscular 33.2 33.5 Hemoglobin Concent Red Cell 15.3 H 15.6 H Distribution Width Platelet Count 456 #H 402 Mean Platelet Volume 9.0 9.7 Immature 0.600 H 0.300 Granulocytes % Neutrophils % 80.9 H 73.4 Lymphocytes % 11.1 L 15.1 Monocytes % 7.0 10.5 Eosinophils % 0.1 0.3 Basophils % 0.3 0.4 Nucleated Red Blood 0.0 0.0 Cells % Immature 0.120 H 0.040 H Granulocytes # Neutrophils # 15.0 H 10.4 H Lymphocytes # 2.1 2.1 Monocytes # 1.3 H 1.5 H Eosinophils # 0.0 0.0 Basophils # 0.1 0.1 Nucleated Red Blood 0.0 0.0 Cells # Prothrombin Time 19.8 H Prothrombin Time 1.5 Ratio INR International 1.67 Normalized Ratio Activated 49.3 H Partial Thromboplast Time Sodium Level 138 137 Potassium Level 5.0 4.6 Chloride Level 104 102 Carbon Dioxide Level 23 24 Anion Gap 11 11 Blood Urea Nitrogen 39 H 37 H Creatinine 1.39 H 1.28 H Est Glomerular Filtrat Rate mL/min Glucose Level 114 118 Calcium Level 9.9 8.7 Total Bilirubin 0.3 0.3 Direct Bilirubin 0.00 0.00 Indirect Bilirubin 0.3 0.3 Aspartate Amino 16 14 L Transf (AST/SGOT) Alanine < 6 L 7 L Aminotransferase (AL T/SGPT) Alkaline Phosphatase 110 84 Troponin I < 0.012 Total Protein 8.7 H 7.1 # Albumin 3.9 3.2 L Globulin 4.80 H 3.90 H Albumin/Globulin 0.81 0.82 Ratio Free Thyroxine Index 2.58 Thyroxine (T4) 6.8 Triiodothyronine 37.9 (T3) Uptake Ethyl Alcohol Level < 10.0 H Bedside Glucose 92 Urine Color YELLOW Urine Clarity TURBID A Urine pH 5.0 Urine Specific 1.013 Brogan Urine Ketones NEGATIVE Urine Nitrite NEGATIVE Urine Bilirubin NEGATIVE Urine Urobilinogen NEGATIVE Urine Leukocyte 3+ H Esterase Urine Microscopic 121 H RBC Urine Microscopic > 182 H WBC Urine Bacteria MANY A Urine Mucus FEW A Urine Hemoglobin 3+ H Urine Glucose NEGATIVE Urine Total Protein 2+ H Urine Opiates Screen Negative Urine Barbiturates Negative Urine Amphetamines Negative Screen Urine Negative Benzodiazepines Screen Urine Cocaine Screen Negative Urine Cannabinoids Negative Hemoglobin A1c 5.9 Magnesium Level 2.0 Thyroid Stimulating 0.946 Hormone (TSH) Medications Medication Current Medications Ondansetron HCl (Zofran Inj) 4 mg BRIDGE ORDER PRN IV NAUSEA/VOMITING; Start 12/13/18 at 00:00; Stop 12/13/18 at 23:59 Acetaminophen (Tylenol Tab) 650 mg ER BRIDGE PRN PO .MILD PAIN 1-3 OR TEMP; Start 12/13/18 at 00:00; Stop 12/13/18 at 23:59 IV Flush (NS 3 ml) 3 ml PER PROTOCOL IV ; Start 12/13/18 at 00:30 Ondansetron HCl (Zofran Inj) 4 mg Q6H PRN IV NAUSEA/VOMITING; Start 12/13/18 at 00:30 Acetaminophen (Tylenol Tab) 650 mg Q6H PRN PO .PAIN 1-3 OR TEMP; Start 12/13/18 at 00:30 Docusate Sodium (Colace) 100 mg Q12H PRN PO .CONSTIPATION; Start 12/13/18 at 00:30 Bisacodyl (Dulcolax) 5 mg DAILY PRN PO .CONSTIPATION; Start 12/13/18 at 00:30 Miscellaneous Information (Pending [facility] Order For Wound Care) This patient lieberman... PRN PRN XX WOUND CARE; Start 12/13/18 at 01:00 Apixaban (Eliquis) 2.5 mg BID PO Last administered on 12/13/18at 11:10; Admin Dose 2.5 MG; Start 12/13/18 at 09:30 PATRICK CÁRDENAS MD Dec 13, 2018 13:22
[2018-12-13 14:11] VITALS: BP 112/59; PULSE 56; RESP 18
[2018-12-13 19:44] VITALS: BP 100/60; PULSE 60; RESP 18
[2018-12-14 01:42] VITALS: BP 105/58; PULSE 77; RESP 18
[2018-12-14 08:33] VITALS: BP 149/108; PULSE 71; RESP 18
[2018-12-14] MEDS: APIXABAN 5 MG TABLET PO SCH ×2 (09:21→21:39)
--- NOTE | 2018-12-14 11:41 | PN ---
Date/Time of Note Date/Time of Note DATE: 12/14/18 TIME: 11:41 Objective Vitals Vital Signs Date Temp Pulse Resp B/P (MAP) Pulse Ox O2 O2 Flow FiO2 Time Delivery Rate 12/14/18 98.0 71 18 149/108 94 Room Air 08:33 (122) Intake and Output 12/13/18 12/13/18 12/14/18 1515:00 23:00 07:00 IntakeIntake Total 300 ml 500 ml OutputOutput Total 200 ml BalanceBalance 300 ml 500 ml -200 ml Results Result Diagram: 12/14/18 0456 12/14/18 1109 Medications Medications Current Medications IV Flush (NS 3 ml) 3 ml PER PROTOCOL IV ; Start 12/13/18 at 00:30 Ondansetron HCl (Zofran Inj) 4 mg Q6H PRN IV NAUSEA/VOMITING; Start 12/13/18 at 00:30 Acetaminophen (Tylenol Tab) 650 mg Q6H PRN PO .PAIN 1-3 OR TEMP; Start 12/13/18 at 00:30 Docusate Sodium (Colace) 100 mg Q12H PRN PO .CONSTIPATION; Start 12/13/18 at 00:30 Bisacodyl (Dulcolax) 5 mg DAILY PRN PO .CONSTIPATION; Start 12/13/18 at 00:30 Miscellaneous Information (Pending [facility] Order For Wound Care) This patient lieberman... PRN PRN XX WOUND CARE; Start 12/13/18 at 01:00 Apixaban (Eliquis) 2.5 mg BID PO Last administered on 12/14/18at 09:21; Admin Dose 2.5 MG; Start 12/13/18 at 09:30 Cephalexin (Keflex) 500 mg Q6 PO ; Start 12/14/18 at 12:00 VTE Prophylaxis Risk score (from Nsg)>0 risk: 7 SCD applied (from Nsg): Yes Lines/Catheters IV Catheter Type: Fair in Place: No Assessment/Plan Hospital Course Subjective Patient doing well, have her complaining of having to go urination quite frequently, spoke with son over the phone who states patient is near baseline however has some issues that are not his norm including his occupation with needing diapers for his incontinence Objective Physical exam General: Patient is laying in bed and answers questions Mentation: Patient is alert and oriented to self Head: Normocephalic atraumatic Eyes: EOMI, pupils reactive to light Neck: Supple, nontender, midline Respiratory: Clear to auscultation bilaterally Cardiovascular: regular rate, no obvious murmurs Gastrointestinal: non-tender to palpation, bowel sounds heard. Neurological: Moves all extremities spontaneously Skin: No new skin lesions Assessment/Plan Left elbow pain - patient accidently rolled off the bed. Xrays noted and reviewed with patient - pain control - CT head negative for acute hemorrhage given patient on Eliquis UTI - patient admits to frequency - start keflex due to culture results urinary frequency -patient overwhelmed with need to urinate and need of diapers, concerning for patient to run out of bed and fall once discharged. -urology consulted for possible med recommendation. acute on chronic encephalopathy -Patient does have a degree of mild to moderate memory loss and some dementia per patient's son but his baseline his fairly high functioning. -UTI is likely causing some of these issues Electrolyte deranagement -Stat repeat potassium, will use kayexalate as needed h/o afib - patient is current rate controlled. Continue current medications H/o CVA - no residual defects noted - PT/OT consulted SHANTA -resolving - most likely prerenal - improving on IVF - avoid nephrotoxic agents HTN - will restart when able. Left upper extremity skin tear: Status post ground-level fall - Wound care consult. Bilateral ear debris and cerumen -Unable to procure otoscope on floor, will continue to look for otoscope however if unable to find, recommended patient to get this addressed at his primary care physician's office. 8. Disposition - PT eval and urology eval pending JASON BARRIGA Dec 14, 2018 11:41
[2018-12-14] MEDS: CEPHALEXIN 500 MG CAP PO SCH ×3 (12:01→23:05)
[2018-12-14 14:57] VITALS: BP 118/56; PULSE 56; RESP 18
--- NOTE | 2018-12-14 18:12 | CONS ---
Assessment/Plan Assessment/Plan Hospital Course (Demo Recall) 83-year-old male presented to the emergency department after having difficulty getting out of bed. He stated that he did slide out of bed but denies any loss of consciousness or any trauma to the head. He states that he has been weak over the last 1-2 weeks and not been eating. When he did slide out of the bed he did land on his left arm and sustained a wound. He denies any headaches or chest pain. He has a history of stroke and is currently on Eliquis. Denies any chest pain or nausea vomiting. He also complains of urinary urgency and urgency incontinence. There is no history of gross hematuria.. Urine culture did show : URINE CULTURE Final Organism 1 ESCHERICHIA COLI COLONY COUNT >100,000 CFU/ml E COLI M.I.C. RX --------- --- AMPICILLIN >=32 R CEFAZOLIN <=4 S CEFOTAXIME S CIPROFLOXACIN 0.5 S GENTAMICIN <=1 S LEVOFLOXACIN 1 S NITROFURANTOIN 32 S TOBRAMYCIN <=1 S TRIMETHOPRIM/SULFAMETHOXAZOLE >=320 R Patient is on Keflex. Impression: Urinary tract infection with E. coli and that could be causing his urinary urgency and urgency incontinence. Recommend: Continue the antibiotic. Consultation Date/Type/Reason Admit Date/Time Dec 12, 2018 at 23:40 Date of Consultation: Dec 14, 2018 Type of Consult Urology Reason for Consultation Urinary urgency Requesting Provider: JASON BARRIGA Date/Time of Note DATE: 12/14/18 TIME: 17:58 Hx of Present Illness 83-year-old male presented to the emergency department after having difficulty getting out of bed. He stated that he did slide out of bed but denies any loss of consciousness or any trauma to the head. He states that he has been weak over the last 1-2 weeks and not been eating. When he did slide out of the bed he did land on his left arm and sustained a wound. He denies any headaches or chest pain. He has a history of stroke and is currently on Eliquis. Denies any chest pain or nausea vomiting. He also complains of urinary urgency and urgency incontinence. There is no history of gross hematuria.. Constitutional: no complaints Eyes: no complaints ENT: no complaints Respiratory: No shortness of breath Cardiovascular: no complaints Gastrointestinal: no complaints Genitourinary: other (Urinary urgency and urgency incontinence); No dysuria, No hematuria Musculoskeletal: no complaints Skin: laceration (Left upper extremity from the fall) Neurologic: confusion, other (Generalized weakness) Endocrine: no complaints Psychological: no complaints Immunologic: no complaints Past Medical History Medical History: hypertension, other (History of stroke with no sequela, acute kidney injury, A. fib) Home Meds Active Scripts Lisinopril* (Zestril*) 5 Mg Tab, 5 MG PO BID, #30 3 Refills Prov:BLAIR MANN 10/18/14 Reported Medications Amlodipine Besylate* (Amlodipine Besylate*) 10 Mg Tablet, 10 MG PO DAILY, #30 TAB 07/13/17 Apixaban* (Eliquis*) 2.5 Mg Tablet, 2.5 MG PO BID, TAB 07/13/17 Medications Current Medications IV Flush (NS 3 ml) 3 ml PER PROTOCOL IV ; Start 12/13/18 at 00:30 Ondansetron HCl (Zofran Inj) 4 mg Q6H PRN IV NAUSEA/VOMITING; Start 12/13/18 at 00:30 Acetaminophen (Tylenol Tab) 650 mg Q6H PRN PO .PAIN 1-3 OR TEMP; Start 12/13/18 at 00:30 Docusate Sodium (Colace) 100 mg Q12H PRN PO .CONSTIPATION; Start 12/13/18 at 00:30 Bisacodyl (Dulcolax) 5 mg DAILY PRN PO .CONSTIPATION; Start 12/13/18 at 00:30 Miscellaneous Information (Pending [facility] Order For Wound Care) This patient lieberman... PRN PRN XX WOUND CARE; Start 12/13/18 at 01:00 Apixaban (Eliquis) 2.5 mg BID PO Last administered on 12/14/18at 09:21; Admin Dose 2.5 MG; Start 12/13/18 at 09:30 Cephalexin (Keflex) 500 mg Q6 PO Last administered on 12/14/18at 17:55; Admin Dose 500 MG; Start 12/14/18 at 12:00 Allergies: Coded Allergies: No Known Drug Allergy (Verified Allergy, Unknown, 07/13/17) Past Surgical History Past Surgical Hx: other (Lobectomy) Social History Alcohol Use: occasionally Smoking Status: Former smoker Exam/Review of Systems Exam Vitals Vital Signs Date Temp Pulse Resp B/P (MAP) Pulse Ox O2 O2 Flow FiO2 Time Delivery Rate 12/14/18 98.1 56 18 118/56 97 Room Air 14:57 (76) Intake and Output 12/13/18 12/13/18 12/14/18 1414:59 22:59 06:59 IntakeIntake Total 300 ml 500 ml OutputOutput Total 200 ml BalanceBalance 300 ml 500 ml -200 ml Constitutional: alert Psych: no complaints, nl mood/affect, confusion Head: normocephalic Eyes: nl conjunctiva ENMT: nl external ears & nose Neck: supple Respiratory: normal air movement; No wheezing Cardiovascular: irregular rhythm (Atrial fibrillation) Gastrointestinal: soft Genitourinary - Male: nl penis, nl scrotum, other (Rectal exam: Soft prostate); No CVA tenderness Musculoskeletal: nl extremities to inspection, other (Left upper extremity wr apped because of the skin laceration that he had from the fall) Extremities: No calf tenderness Neurological: confused Results Result Diagram: 12/14/18 0456 12/14/18 1109 Results 24hrs Laboratory Tests Test 12/14/18 04:56 12/14/18 11:09 White Blood Count 10.6 # Red Blood Count 3.79 L Hemoglobin 11.0 L Hematocrit 32.8 L Mean Corpuscular Volume 86.5 Mean Corpuscular Hemoglobin 29.0 Mean Corpuscular Hemoglobin Concent 33.5 Red Cell Distribution Width 15.5 H Platelet Count 384 Mean Platelet Volume 9.5 Immature Granulocytes % 0.300 Neutrophils % 68.2 Lymphocytes % 20.9 Monocytes % 9.6 Eosinophils % 0.7 Basophils % 0.3 Nucleated Red Blood Cells % 0.0 Immature Granulocytes # 0.030 Neutrophils # 7.2 Lymphocytes # 2.2 Monocytes # 1.0 H Eosinophils # 0.1 Basophils # 0.0 Nucleated Red Blood Cells # 0.0 Sodium Level 136 Potassium Level 5.3 H 4.6 Chloride Level 102 Carbon Dioxide Level 26 Anion Gap 8 Blood Urea Nitrogen 31 H Creatinine 1.06 Est Glomerular Filtrat Rate mL/min Glucose Level 90 Calcium Level 9.0 Magnesium Level 1.9 Total Bilirubin 0.3 Direct Bilirubin 0.00 Indirect Bilirubin 0.3 Aspartate Amino Transf (AST/SGOT) 12 L Alanine Aminotransferase (ALT/SGPT) 10 L Alkaline Phosphatase 77 Total Protein 6.7 Albumin 3.0 L Globulin 3.70 H Albumin/Globulin Ratio 0.81 Medications Medication Current Medications IV Flush (NS 3 ml) 3 ml PER PROTOCOL IV ; Start 12/13/18 at 00:30 Ondansetron HCl (Zofran Inj) 4 mg Q6H PRN IV NAUSEA/VOMITING; Start 12/13/18 at 00:30 Acetaminophen (Tylenol Tab) 650 mg Q6H PRN PO .PAIN 1-3 OR TEMP; Start 12/13/18 at 00:30 Docusate Sodium (Colace) 100 mg Q12H PRN PO .CONSTIPATION; Start 12/13/18 at 00:30 Bisacodyl (Dulcolax) 5 mg DAILY PRN PO .CONSTIPATION; Start 12/13/18 at 00:30 Miscellaneous Information [facility] This patient lieberman... PRN PRN XX WOUND CARE; Start 12/13/18 at 01:00 Apixaban (Eliquis) 2.5 mg BID PO Last administered on 12/14/18at 09:21; Admin Dose 2.5 MG; Start 12/13/18 at 09:30 Cephalexin (Keflex) 500 mg Q6 PO Last administered on 12/14/18at 17:55; Admin Dose 500 MG; Start 12/14/18 at 12:00 SHANON CRUZ MD Dec 14, 2018 18:09
[2018-12-14 19:39] VITALS: BP 113/61; PULSE 52; RESP 16
[2018-12-15 01:51] VITALS: BP 110/70; PULSE 56; RESP 18
[2018-12-15] MEDS: CEPHALEXIN 500 MG CAP PO SCH ×4 (05:15→23:28)
[2018-12-15 07:38] VITALS: BP 109/56; PULSE 63; RESP 18
[2018-12-15] MEDS: APIXABAN 5 MG TABLET PO SCH ×2 (08:58→20:54)
[2018-12-15 09:00] VITALS: BP 111/62; PULSE 68; RESP 18
--- NOTE | 2018-12-15 12:42 | PN ---
Date/Time of Note Date/Time of Note DATE: 12/15/18 TIME: 12:40 Objective Vitals Vital Signs Date Temp Pulse Resp B/P (MAP) Pulse Ox O2 O2 Flow FiO2 Time Delivery Rate 12/15/18 98.0 68 18 111/62 96 09:00 (78) 12/15/18 Room Air 01:51 Intake and Output 12/14/18 12/14/18 12/15/18 1515:00 23:00 07:00 IntakeIntake Total 200 ml 840 ml 600 ml OutputOutput Total 200 ml 300 ml BalanceBalance 200 ml 640 ml 300 ml Results Result Diagram: 12/15/18 0436 12/15/18 0436 Medications Medications Current Medications IV Flush (NS 3 ml) 3 ml PER PROTOCOL IV ; Start 12/13/18 at 00:30 Ondansetron HCl (Zofran Inj) 4 mg Q6H PRN IV NAUSEA/VOMITING; Start 12/13/18 at 00:30 Acetaminophen (Tylenol Tab) 650 mg Q6H PRN PO .PAIN 1-3 OR TEMP; Start 12/13/18 at 00:30 Docusate Sodium (Colace) 100 mg Q12H PRN PO .CONSTIPATION; Start 12/13/18 at 00:30 Bisacodyl (Dulcolax) 5 mg DAILY PRN PO .CONSTIPATION; Start 12/13/18 at 00:30 Miscellaneous Information (Pending [facility] Order For Wound Care) This patient lieberman... PRN PRN XX WOUND CARE; Start 12/13/18 at 01:00 Apixaban (Eliquis) 2.5 mg BID PO Last administered on 12/15/18at 08:58; Admin Dose 2.5 MG; Start 12/13/18 at 09:30 Cephalexin (Keflex) 500 mg Q6 PO Last administered on 12/15/18at 11:52; Admin Dose 500 MG; Start 12/14/18 at 12:00 VTE Prophylaxis Risk score (from Nsg)>0 risk: 7 SCD applied (from Nsg): Yes Lines/Catheters IV Catheter Type: Fair in Place: No Assessment/Plan Hospital Course Subjective Patient doing better than yesterday, no more bladder issues Objective Physical exam General: Patient is laying in bed and answers questions Mentation: Patient is alert and oriented to self Head: Normocephalic atraumatic Eyes: EOMI, pupils reactive to light Neck: Supple, nontender, midline Respiratory: Clear to auscultation bilaterally Cardiovascular: regular rate, no obvious murmurs Gastrointestinal: non-tender to palpation, bowel sounds heard. Neurological: Moves all extremities spontaneously Skin: No new skin lesions Assessment/Plan Left elbow pain - patient accidently rolled off the bed. Xrays noted and reviewed with patient - pain control - CT head negative for acute hemorrhage given patient on Eliquis UTI - patient admits to frequency however getting better - start keflex due to culture results urinary frequency, resolving -At home patient overwhelmed with need to urinate and need of diapers, concerning for patient to run out of bed and fall once discharged. -urology stated to first treat the infection and to see if any other continuing issues per acute on chronic encephalopathy -Patient does have a degree of mild to moderate memory loss and some dementia per patient's son but his baseline his fairly high functioning. -UTI is likely causing some of these issues -Patient back to baseline Electrolyte deranagement -Monitor closely, manage as needed h/o afib -Continue current medications H/o CVA - no residual defects noted - PT/OT consulted SHANTA -resolving - most likely prerenal - improving on IVF - avoid nephrotoxic agents HTN - will restart when able. Left upper extremity skin tear: Status post ground-level fall - Wound care consult. Bilateral ear debris and cerumen -Unable to procure otoscope on floor, will continue to look for otoscope however if unable to find, recommended patient to get this addressed at his primary care physician's office. 8. Disposition -Patient's family request air your evaluation as patient is unsteady although is able to walk. JASON BARRIGA Dec 15, 2018 12:42
[2018-12-15 14:04] VITALS: BP 114/60; PULSE 66; RESP 18
--- NOTE | 2018-12-15 19:25 | CONS ---
Consult Date/Type/Reason Admit Date/Time Dec 12, 2018 at 23:40 Initial Consult Date 12/14/18 Type of Consultation: Urology Reason for Consultation Urinary tract infection Requesting Provider: JASON BARRIGA Date/Time of Note DATE: 12/15/18 TIME: 19:23 Subjective Patient is resting comfortable. His son is at his bedside. He denies any pain. Objective Vitals Vital Signs Date Temp Pulse Resp B/P (MAP) Pulse Ox O2 O2 Flow FiO2 Time Delivery Rate 12/15/18 97.8 66 18 114/60 92 Room Air 14:04 (78) Intake and Output 12/14/18 12/14/18 12/15/18 1515:00 23:00 07:00 IntakeIntake Total 200 ml 840 ml 600 ml OutputOutput Total 200 ml 300 ml BalanceBalance 200 ml 640 ml 300 ml Exam Abdomen is soft, there is no abdominal tenderness. Results/Medications Result Diagram: 12/15/18 0436 12/15/18 0436 Results 24 hrs Laboratory Tests Test 12/15/18 04:36 White Blood Count 11.2 H Red Blood Count 3.86 L Hemoglobin 11.0 L Hematocrit 33.1 L Mean Corpuscular Volume 85.8 Mean Corpuscular Hemoglobin 28.5 L Mean Corpuscular Hemoglobin Concent 33.2 Red Cell Distribution Width 15.3 H Platelet Count 396 Mean Platelet Volume 9.7 Immature Granulocytes % 0.300 Neutrophils % 71.7 Lymphocytes % 16.6 Monocytes % 10.2 Eosinophils % 0.8 Basophils % 0.4 Nucleated Red Blood Cells % 0.0 Immature Granulocytes # 0.030 Neutrophils # 8.0 H Lymphocytes # 1.9 Monocytes # 1.1 H Eosinophils # 0.1 Basophils # 0.1 Nucleated Red Blood Cells # 0.0 Sodium Level 138 Potassium Level 5.1 Chloride Level 105 Carbon Dioxide Level 26 Anion Gap 7 Blood Urea Nitrogen 36 H Creatinine 1.14 Est Glomerular Filtrat Rate mL/min Glucose Level 100 Calcium Level 9.1 Magnesium Level 1.9 Total Bilirubin 0.2 Direct Bilirubin 0.00 Indirect Bilirubin 0.2 Aspartate Amino Transf (AST/SGOT) 21 # Alanine Aminotransferase (ALT/SGPT) 11 L Alkaline Phosphatase 87 Total Protein 7.2 Albumin 3.1 L Globulin 4.10 H Albumin/Globulin Ratio 0.75 Home Meds Active Scripts Lisinopril* (Zestril*) 5 Mg Tab, 5 MG PO BID, #30 3 Refills Prov:BLAIR MANN 10/18/14 Reported Medications Amlodipine Besylate* (Amlodipine Besylate*) 10 Mg Tablet, 10 MG PO DAILY, #30 TAB 07/13/17 Apixaban* (Eliquis*) 2.5 Mg Tablet, 2.5 MG PO BID, TAB 07/13/17 Medications Current Medications IV Flush (NS 3 ml) 3 ml PER PROTOCOL IV ; Start 12/13/18 at 00:30 Ondansetron HCl (Zofran Inj) 4 mg Q6H PRN IV NAUSEA/VOMITING; Start 12/13/18 at 00:30 Acetaminophen (Tylenol Tab) 650 mg Q6H PRN PO .PAIN 1-3 OR TEMP; Start 12/13/18 at 00:30 Docusate Sodium (Colace) 100 mg Q12H PRN PO .CONSTIPATION; Start 12/13/18 at 00:30 Bisacodyl (Dulcolax) 5 mg DAILY PRN PO .CONSTIPATION; Start 12/13/18 at 00:30 Miscellaneous Information (Pending [facility] Order For Wound Care) This patient lieberman... PRN PRN XX WOUND CARE; Start 12/13/18 at 01:00 Apixaban (Eliquis) 2.5 mg BID PO Last administered on 12/15/18at 08:58; Admin Dose 2.5 MG; Start 12/13/18 at 09:30 Cephalexin (Keflex) 500 mg Q6 PO Last administered on 12/15/18at 18:07; Admin Dose 500 MG; Start 12/14/18 at 12:00 Assessment/Plan Hospital Course (Demo Recall) 83-year-old male presented to the emergency department after having difficulty getting out of bed. He stated that he did slide out of bed but denies any loss of consciousness or any trauma to the head. He states that he has been weak over the last 1-2 weeks and not been eating. When he did slide out of the bed he did land on his left arm and sustained a wound. He denies any headaches or chest pain. He has a history of stroke and is currently on Eliquis. Denies any chest pain or nausea vomiting. He also complains of urinary urgency and urgency incontinence. There is no history of gross hematuria.. Urine culture did show : URINE CULTURE Final Organism 1 ESCHERICHIA COLI COLONY COUNT >100,000 CFU/ml E COLI M.I.C. RX --------- --- AMPICILLIN >=32 R CEFAZOLIN <=4 S CEFOTAXIME S CIPROFLOXACIN 0.5 S GENTAMICIN <=1 S LEVOFLOXACIN 1 S NITROFURANTOIN 32 S TOBRAMYCIN <=1 S TRIMETHOPRIM/SULFAMETHOXAZOLE >=320 R Patient is on antibiotic and appears to be responding well. Continue present treatment. SHANON CRUZ MD Dec 15, 2018 19:25
[2018-12-15 19:55] VITALS: BP 112/68; PULSE 68; RESP 18
[2018-12-16 02:21] VITALS: BP 115/60; PULSE 72; RESP 18
[2018-12-16] MEDS: CEPHALEXIN 500 MG CAP PO SCH ×2 (05:46→13:25)
[2018-12-16 08:34] VITALS: BP 113/67; PULSE 74; RESP 18
[2018-12-16] MEDS: APIXABAN 5 MG TABLET PO SCH (09:05)
[2018-12-16 11:34] VITALS: BP 119/57; PULSE 63
[2018-12-16 11:39] VITALS: BP 111/57; PULSE 77
[2018-12-16 11:42] VITALS: BP 115/67; PULSE 56
--- NOTE | 2018-12-16 13:54 | DS ---
Date/Time of Note Date/Time of Note DATE: 12/16/18 TIME: 13:54 Discharge Summary Admission/Discharge Info Admit Date/Time Dec 12, 2018 at 23:40 Discharge Date/Time Patient Condition: Stable Hospital Course Patient is a male with a past medical history significant for CVA in the past on Eliquis as well as A. fib, rate controlled on no medication who presents to [facility] for weakness, and recent fall without loss of consciousness. After further investigation patient was found to have UTI which likely cause the weakness, urinary incontinence and urgency as well as stumbling out of bed. Patient received CT which did not show any acute issues and patient was treated appropriately on appropriate antibiotics for his UTI. After patient was initiated on antibiotics, most of patient's symptoms symptoms began to improve especially his urinary urgency and frequency. Patient was also noted to be taking blood pressure medication at home however patient is doing perfectly fine without any blood pressure medication denied at this time I do not recommend continuing blood pressure. Patient is not on any rate controlling medication however his heart rate has been controlled his entire time here. Patient is on Eliquis for A. fib as well as CVA and has been for approximately 10 years. It was explained to the son the risks of Eliquis however before this UTI most recent hospitalization patient has never had a fall according to the son. Patient does have moderate to severe dementia and it was highly recommended for the son to follow-up with his primary care provider to assess if Eliquis is needed in the future. Patient is doing well however is having some residual weakness from this most recent hospitalization and UTI and will benefit from a stay in the acute rehab unit. Of note patient on CT was found to have bilateral ear debris and cerumen however an otoscope could not be found on the inpatient floor and I recommended outpatient follow-up and removal from family practice physician or in rehab. Discharge diagnosis UTI, resolving Weakness, resolving Urinary frequency, resolved Acute on chronic encephalopathy, resolving Mild to moderate dementia Electronic derangement History of A. fib History of CVA SHANTA, resolved Hypertension, resolved Not on any medications Bilateral ear cerumen, Left elbow pain, resolving, secondary to falling out of bed with no head trauma Home Meds Active Scripts Lisinopril* (Zestril*) 5 Mg Tab, 5 MG PO BID, #30 3 Refills Prov:BLAIR MANN 10/18/14 Reported Medications Amlodipine Besylate* (Amlodipine Besylate*) 10 Mg Tablet, 10 MG PO DAILY, #30 TAB 07/13/17 Apixaban* (Eliquis*) 2.5 Mg Tablet, 2.5 MG PO BID, TAB 07/13/17 Primary Care Provider Not On Staff Doctor Time spent on discharge: > 30 minutes Pending Labs Laboratory Tests Test 12/16/18 04:40 12/16/18 09:57 White Blood Count 11.1 10^3/ul (4.8-10.8) Red Blood Count 4.06 10^6/ul (4.70-6.10) Hemoglobin 11.7 g/dl (14.0-18.0) Hematocrit 36.0 % (42.0-52.0) Mean Corpuscular Volume 88.7 fl (82.0-101.0) Mean Corpuscular Hemoglobin 28.8 pg (29.0-33.0) Mean Corpuscular 32.5 g/dl (32.0-37.0) Hemoglobin Concent Red Cell Distribution Width 15.4 % (11.5-14.5) Platelet Count 420 10^3/UL (140-415) Mean Platelet Volume 9.7 fl (7.4-10.4) Immature Granulocytes % 0.400 % (0.001-0.429) Neutrophils % 72.7 % (39.0-77.0) Lymphocytes % 16.1 % (15.0-51.0) Monocytes % 9.3 % (0.0-11.0) Eosinophils % 1.0 % (0.0-7.0) Basophils % 0.5 % (0.0-2.0) Nucleated Red Blood Cells % 0.0 /100WBC (0.0-0.0) Immature Granulocytes # 0.040 10^3/ul (0.0-0.031) Neutrophils # 8.1 10^3/ul (1.6-7.5) Lymphocytes # 1.8 10^3/ul (0.8-2.9) Monocytes # 1.0 10^3/ul (0.3-0.9) Eosinophils # 0.1 10^3/ul (0.0-0.5) Basophils # 0.1 10^3/ul (0.0-0.1) Nucleated Red Blood Cells # 0.0 10^3/ul (0.0-0.0) Sodium Level 141 mmol/L (135-144) Potassium Level 5.2 mmol/L (3.5-5.1) 4.4 mmol/L (3.5-5.1) Chloride Level 106 mmol/L (97-110) Carbon Dioxide Level 28 mmol/L (21-31) Anion Gap 7 (5-13) Blood Urea Nitrogen 31 mg/dl (7-20) Creatinine 1.22 mg/dl (0.61-1.24) Est Glomerular Filtrat mL/min (>60) Rate mL/min Glucose Level 96 mg/dl (70-220) Calcium Level 9.0 mg/dl (8.4-10.2) Magnesium Level 2.0 mg/dl (1.7-2.5) Total Bilirubin 0.1 mg/dl (0.2-1.3) Direct Bilirubin 0.00 mg/dl (0.00-0.20) Indirect Bilirubin 0.1 mg/dl (0-1.1) Aspartate Amino 17 IU/L (15-46) Transf (AST/SGOT) Alanine 18 IU/L (13-69) Aminotransferase (ALT/SGPT) Alkaline Phosphatase 85 IU/L (42-121) Total Protein 7.4 g/dl (6.1-8.1) Albumin 3.3 g/dl (3.3-4.9) Globulin 4.10 g/dl (1.3-3.2) Albumin/Globulin Ratio 0.80 JASON BARRIGA Dec 16, 2018 13:54
[2018-12-16] MEDS ORDERED: CEPH500C PO (13:56)
== END 2018-12-16 15:50 | DRG 690 ==
LOC: E/R 16:07 → MS1 23:40
PROVIDERS: ADMIT Family Medicine; ATTEND Internal Medicine
DX: N30.00 Acute cystitis without hematuria (principal); N17.9 Acute kidney failure, unspecified; G93.49 Other encephalopathy; B96.20 Unspecified Escherichia coli [E. coli] as the cause of diseases classified elsewhere; I48.0 Paroxysmal atrial fibrillation; I10 Essential (primary) hypertension; J44.9 Chronic obstructive pulmonary disease, unspecified; I48.2 Chronic atrial fibrillation; H61.23 Impacted cerumen, bilateral; E86.0 Dehydration; M25.522 Pain in left elbow; F03.90 Unspecified dementia, unspecified severity, without behavioral disturbance, psychotic disturbance, mood disturbance, and anxiety; S40.922A Unspecified superficial injury of left upper arm, initial encounter; Z86.73 Personal history of transient ischemic attack (TIA), and cerebral infarction without residual deficits; Z87.891 Personal history of nicotine dependence; W06.XXXA Fall from bed, initial encounter; Y92.003 Bedroom of unspecified non-institutional (private) residence as the place of occurrence of the external cause
CPT/HCPCS: 36415; 70450; 71045; 80053; 80307; 81001; 82306; 82962; 83036; 83735; 84132; 84436; 84443; 84479; 84484; 85025; 85610; 85730; 87086; 90471; 90715; 93005; 93880; 96374; 97116; 97162; 97165; 97530; J0696; J7030; J7040

== ENCOUNTER 2018-12-16 11:57 | Inpatient (IN) | payer MEDICARE, OTHER ==
[~2018-12-16] VITALS: Ht 180.3 cm; Wt 55.8 kg
[2018-12-16] MEDS ORDERED: CEPH500C PO (13:56)
[2018-12-16] MEDS ORDERED: LACTULOSE 30ML CUP PO PRN (16:30)
[2018-12-16] MEDS ORDERED: BISACODYL 10 MG SUPP PR PRN (16:30)
[2018-12-16] MEDS ORDERED: MAGNESIUM HYDROXIDE 30ML CUP PO PRN (16:30)
[2018-12-16] MEDS ORDERED: PENDING SANTYL ORDER FOR WOUND CARE XX PRN (16:30)
[2018-12-16 17:00] VITALS: BP 115/65; PULSE 62; RESP 18
[2018-12-16] MEDS ORDERED: BISACODYL (EC) 5 MG TAB PO PRN (17:00)
[2018-12-16] MEDS: CEPHALEXIN 500 MG CAP PO SCH ×2 (17:53→23:10)
[2018-12-16 19:28] VITALS: BP 112/66; PULSE 68; RESP 18
[2018-12-16] MEDS: APIXABAN 5 MG TABLET PO SCH (21:36)
[2018-12-16] MEDS: SENNA TAB PO SCH (21:36)
[2018-12-16] MEDS: DOCUSATE SODIUM 100 MG CAP PO SCH (21:36)
[2018-12-17 02:00] VITALS: BP 118/62; PULSE 64; RESP 18
[2018-12-17] MEDS: CEPHALEXIN 500 MG CAP PO SCH ×4 (06:46→23:23)
[2018-12-17 07:00] VITALS: BP 109/58; PULSE 59; RESP 18
[2018-12-17] MEDS: NEOMYC/POLYMYX/BACIT 30 GM OINT TOP SCH (08:29)
[2018-12-17] MEDS: APIXABAN 5 MG TABLET PO SCH ×2 (08:29→20:19)
[2018-12-17] MEDS: SENNA TAB PO SCH (08:29)
[2018-12-17] MEDS: DOCUSATE SODIUM 100 MG CAP PO SCH ×2 (08:29→20:22)
--- NOTE | 2018-12-17 13:57 | CONS ---
DATE OF ADMISSION: 12/16/2018 DATE OF CONSULTATION: 12/17/2018 REHABILITATION POST-ADMISSION PHYSICIAN EVALUATION REHABILITATION IMPAIRMENT CATEGORY: Acute on chronic encephalopathy. ACTIVE COMORBIDITIES: 1. History of cerebrovascular accident. 2. Atrial fibrillation. 3. Recent fall with left elbow contusion and abrasion. 4. Urinary tract infection. 5. Acute kidney injury. 6. Hypertension, which has been improving. 7. Impairments in self-care, mobility and cognition. HISTORY OF PRESENT ILLNESS: The patient is an 83-year-old gentleman with a history of CVA, atrial fibrillation who was noted to have increasing weakness which contributed to a fall at home. The patient sustained elbow injury and was also noted to have significant confusion as compared to baseline. A head CT was negative for acute findings. The patient felt to likely have acute on chronic encephalopathy secondary to urinary tract infection. The patient noted to have significant impairments in self-care and mobility as compared to baseline, and has been cleared to transfer to the rehabilitation unit for comprehensive interdisciplinary rehab care. FUNCTIONAL HISTORY: Prior to recent events, he was independent in self-care tasks and mobility. Currently, the patient requires minimal to moderate assist for self-care and mobility tasks. FAMILY AND SOCIAL HISTORY: The patient lives at home with family and hopes to return there upon discharge. PAST MEDICAL HISTORY: 1. History of cerebrovascular accident. 2. Atrial fibrillation. 3. Hypertension. 4. Hypercholesterolemia. CURRENT MEDICATIONS: 1. Eliquis 2.5 mg p.o. b.i.d. 2. Keflex 500 mg q.6h. 3. Santyl p.r.n. ALLERGIES: The patient with no known drug allergies. PHYSICAL EXAMINATION: VITAL SIGNS: He is currently afebrile with stable vital signs. HEENT: Extraocular motions are intact. Oropharynx clear. NECK: Supple. LUNGS: Clear anteriorly. CARDIAC: S1, S2. ABDOMEN: Soft, nontender, positive bowel sounds. NEUROLOGIC: He is awake and alert. He will follow simple 1-step commands. He has impaired short-term memory. He demonstrates antigravity strength in bilateral upper extremity and lower extremity. He does have impaired dynamic balance. PLAN: The patient has been admitted for comprehensive interdisciplinary acute rehab and is anticipated to tolerate 3 hours of daily therapy in divided doses for at least 5/7 days a week. The treatment plan will include: 1. Physical therapy to focus on bed mobility, transfers, and household ambulation with the goal of having the patient reach a standby assist level. 2. Occupational therapy to focus on hygiene, grooming, dressing, bathing, and toileting activities with goal of having patient reach a standby assist level. 3. Rehabilitation nursing for carryover of therapeutic interventions, the goal of continent of bowel and bladder, and the goal of improved skin integrity. 4. Neuropsychology for full cognitive assessment and oversight of cognitive program. ESTIMATED LENGTH OF STAY: 10 days. DISPOSITION GOAL: Home. REHABILITATION BARRIER: Weakness. INTERVENTION FOR BARRIER: interdisciplinary approach. As a board certified director rehabilitation program in physical medicine and rehabilitation, I attest that this patient qualifies for an interdisciplinary acute rehabilitation unit stay and is best managed at this level of care. The patient has potential to make improvements and is in need of at least 2 of the following multidisciplinary therapies including but not limited to physical therapy, occupational therapy, speech therapy, neuropsychological services in addition to nutritional services. After a thorough review of the patient's medical records, I believe that this patient meets criteria for acute rehabilitation unit level of care under [facility] guidelines. Dictated By: CARLOS LIVINGSTON/JM Conf#: [id number] DID#: [id number]
[2018-12-17 14:00] VITALS: BP 103/61; PULSE 58; RESP 18
--- NOTE | 2018-12-17 15:57 | HP ---
Date/Time of Note Date/Time of Note DATE: 12/17/18 TIME: 15:48 Assessment/Plan VTE Prophylaxis Risk score (from Ns)>0 risk: 4 SCD applied (from Ns): No SCD contraindicated: other Pharmacological prophylaxis: apixaban Lines/Catheters IV [facility]from [facility] Saline Lock Urinary Cath still in place: No Assessment/Plan Hospital Course SUBJECTIVE: Sitting up in chair, no acute distress. OBJECTIVE: Vital signs-see below PHYSICAL EXAM: Constitutional: Thin built, elderly male,not in acute distress. HEENT: Head atraumatic and normocephalic. Eyes: Extraocular muscles intact. Anicteric sclerae. Pupils equal bilaterally, reactive to light.Ear canal w/Ceru men/debris. NECK: Supple without lymph node. CHEST: Clear and good breath sounds equally. No wheezing. No rhonchi. HEART: S1, S2. Regular rate and rhythm. ABDOMEN: Soft/non tender with no rebound tenderness. Bowel sounds were present. EXTREMITIES: No cyanosis, clubbing or edema. NEUROLOGIC:+ Mildly confused/forgetful. Otherwise for the most part alert and oriented x3. No focal deficit. No sensory deficit. PSYCHOSOCIAL: No signs of depression. INTEGUMENTARY: No open wounds. ASSESSMENT AND PLAN: Encephalopathy with dementia Mentation back to baseline. Continue supportive care UTI -On Keflex treatment with stop date placed. Paroxysmal atrial fibrillation -Continue current medications/Eliquis H/o CVA - no residual defects noted Chronic anemia -Stable H&H. Monitor Prophylaxis: Eliquis. Patient is medically stable for physical therapy and acute rehabilitation unit. Approximately 60 m spent on this history and physical. Patient is seen in collaboration with Result Diagram: 12/17/18 0614 12/17/18 0614 Results 24hrs Laboratory Tests Test 12/17/18 06:14 White Blood Count 10.3 Red Blood Count 3.75 L Hemoglobin 10.9 L Hematocrit 33.1 L Mean Corpuscular Volume 88.3 Mean Corpuscular Hemoglobin 29.1 Mean Corpuscular Hemoglobin Concent 32.9 Red Cell Distribution Width 15.2 H Platelet Count 392 Mean Platelet Volume 9.5 Immature Granulocytes % 0.400 Neutrophils % 68.3 Lymphocytes % 19.9 Monocytes % 9.5 Eosinophils % 1.3 Basophils % 0.6 Nucleated Red Blood Cells % 0.0 Immature Granulocytes # 0.040 H Neutrophils # 7.1 Lymphocytes # 2.1 Monocytes # 1.0 H Eosinophils # 0.1 Basophils # 0.1 Nucleated Red Blood Cells # 0.0 Sodium Level 140 Potassium Level 5.0 Chloride Level 104 Carbon Dioxide Level 29 Anion Gap 7 Blood Urea Nitrogen 35 H Creatinine 1.15 Est Glomerular Filtrat Rate mL/min Glucose Level 97 Calcium Level 9.0 Total Bilirubin 0.2 Direct Bilirubin 0.00 Indirect Bilirubin 0.2 Aspartate Amino Transf (AST/SGOT) 20 Alanine Aminotransferase (ALT/SGPT) 14 Alkaline Phosphatase 76 Total Protein 7.0 Albumin 3.2 L Globulin 3.80 H Albumin/Globulin Ratio 0.84 HPI/ROS Admit Date/Time Admit Date/Time Dec 16, 2018 at 15:54 Hx of Present Illness 83-year-old male with a history of CVA on anticoagulation, atrial fibrillation, hypertension, urinary incontinence, who was admitted at [facility] on 12/12/2018 with altered mental status and fall. Hospitalization was noted for urinary tract infection which was treated appropriately with antimicrobials. Patient was taken off antihypertensives as his blood pressure remained stable without antihypertensives to avoid hypotension and dizziness. He was also found with mild to moderate dementia for which he was given supportive care. Patient was then evaluated by physical therapist, who deemed patient is a good candidate for acute rehabilitation unit and he was accepted on 12/17/2018. At my encounter with the patient, he sitting up in a chair, not in any acute distress. Patient is somewhat demented, forgetful with slow response. He denied chest pain, palpitation, shortness of breath, nausea, vomiting, fever, chills, dysuria, hematuria or other constitutional symptoms. ROS A 12 point review of system was assessed and is negative other than what is mentioned in the HPI. PMH/Family/Social Past Medical History See HPI Medications Current Medications Acetaminophen (Tylenol Tab) 650 mg Q4H PRN PO MILD PAIN(1-3)OR ELEVATED TEMP; Start 12/16/18 at 16:30 Docusate Sodium (Colace) 100 mg BID PO Last administered on 12/17/18at 08:29; Admin Dose 100 MG; Start 12/16/18 at 21:00 Senna (Senokot) 1 tab DAILY PO Last administered on 12/17/18at 08:29; Admin Dose 1 TAB; Start 12/16/18 at 21:00 Bisacodyl (Dulcolax Supp) 10 mg DAILY PRN [place] CONSTIPATION; Start 12/16/18 at 16:30 Magnesium Hydroxide (Milk Of Mag) 30 ml DAILY PRN PO CONSTIPATION; Start 12/16/18 at 16:30 Lactulose (Enulose) 20 gm DAILY PRN PO CONSTIPATION; Start 12/16/18 at 16:30 Miscellaneous [facility] This patient lieberman... PRN PRN XX WOUND CARE; Start 12/16/18 at 16:30 Cephalexin (Keflex) 500 mg Q6 PO Last administered on 12/17/18at 11:54; Admin Dose 500 MG; Start 12/16/18 at 18:00; Stop 12/27/18 at 17:59 Apixaban (Eliquis) 2.5 mg BID PO Last administered on 12/17/18at 08:29; Admin Dose 2.5 MG; Start 12/16/18 at 21:00 Bisacodyl (Dulcolax) 5 mg DAILY PRN PO CONSTIPATION; Start 12/16/18 at 17:00 Neomycin/ Polymyxin/ Bacitracin (Neosporin Topical Oint) 1 applic DAILY TOP Last administered on 12/17/18at 08:29; Admin Dose 1 APPLIC; Start 12/17/18 at 09:00 Coded Allergies: No Known Drug Allergy (Verified Allergy, Unknown, 07/13/17) Past Surgical History Noncontributory Past Surgical Hx: other Family History Significant Family History: no pertinent family hx Social History Former smoker. No alcohol/substance history Smoking Status: Former smoker Exam/Review of Systems Vital Signs Vitals Vital Signs Date Temp Pulse Resp B/P (MAP) Pulse Ox O2 O2 Flow FiO2 Time Delivery Rate 12/17/18 97.8 58 18 103/61 98 Room Air 14:00 (75) Intake and Output 12/16/18 12/16/18 12/17/18 1515:00 23:00 07:00 IntakeIntake Total 220 ml OutputOutput Total 200 ml BalanceBalance 20 ml DARIAN ALBARRAN NP Dec 17, 2018 15:57
[2018-12-17 20:06] VITALS: BP 111/55; PULSE 68; RESP 19
[2018-12-18 02:08] VITALS: BP 105/53; PULSE 57; RESP 19
[2018-12-18] MEDS: CEPHALEXIN 500 MG CAP PO SCH ×4 (06:26→23:12)
[2018-12-18 07:30] VITALS: BP 113/61; PULSE 56; RESP 18
[2018-12-18] MEDS: APIXABAN 5 MG TABLET PO SCH ×2 (08:14→20:01)
[2018-12-18] MEDS: DOCUSATE SODIUM 100 MG CAP PO SCH ×2 (08:14→21:44)
[2018-12-18] MEDS: SENNA TAB PO SCH (08:14)
[2018-12-18] MEDS: NEOMYC/POLYMYX/BACIT 30 GM OINT TOP SCH (08:16)
--- NOTE | 2018-12-18 13:00 | PN ---
Date/Time of Note Date/Time of Note DATE: 12/18/18 TIME: 13:00 Assessment/Plan VTE Prophylaxis Risk score (from Ns)>0 risk: 4 SCD applied (from Ns): No SCD contraindicated: other Pharmacological prophylaxis: apixaban Lines/Catheters [facility] Saline Lock Urinary Cath still in place: No Assessment/Plan Hospital Course SUBJECTIVE: no acute distress. OBJECTIVE: Vital signs-see below PHYSICAL EXAM: Constitutional: Thin built, elderly male,not in acute distress. HEENT: Head atraumatic and normocephalic. Eyes: Extraocular muscles intact. Anicteric sclerae. Pupils equal bilaterally, reactive to light.Ear canal w/Cerumen/debris. NECK: Supple without lymph node. CHEST: Clear and good breath sounds equally. No wheezing. No rhonchi. HEART: S1, S2. Regular rate and rhythm. ABDOMEN: Soft/non tender with no rebound tenderness. Bowel sounds were present. EXTREMITIES: No cyanosis, clubbing or edema. NEUROLOGIC:+ Mildly confused/forgetful. Otherwise for the most part alert and oriented x3. No focal deficit. No sensory deficit. PSYCHOSOCIAL: No signs of depression. INTEGUMENTARY: No open wounds. ASSESSMENT AND PLAN: Encephalopathy with dementia Mentation back to baseline. Continue supportive care UTI -On Keflex treatment with stop date placed. Paroxysmal atrial fibrillation -Continue current medications/Eliquis H/o CVA - no residual defects noted Chronic anemia -Stable H&H. Monitor Prophylaxis: Eliquis. Patient is seen in collaboration with Result Diagram: 12/17/1814 12/17/1814 Exam/Review of Systems Exam Vitals Vital Signs Date Temp Pulse Resp B/P (MAP) Pulse Ox O2 O2 Flow FiO2 Time Delivery Rate 12/18/18 98.3 56 18 113/61 98 Room Air 07:30 (78) Intake and Output 12/17/18 12/17/18 12/18/18 1515:00 23:00 07:00 IntakeIntake Total 550 ml 1400 ml 350 ml OutputOutput Total 601 ml 350 ml BalanceBalance 550 ml 799 ml 0 ml Medications Medication Current Medications Acetaminophen (Tylenol Tab) 650 mg Q4H PRN PO MILD PAIN(1-3)OR ELEVATED TEMP; Start 12/16/18 at 16:30 Docusate Sodium (Colace) 100 mg BID PO Last administered on 12/18/18 08:14; Admin Dose 100 MG; Start 12/16/18 at 21:00 Senna (Senokot) 1 tab DAILY PO Last administered on 12/18/18at 08:14; Admin Dose 1 TAB; Start 12/16/18 at 21:00 Bisacodyl (Dulcolax Supp) 10 mg DAILY PRN [place] CONSTIPATION; Start 12/16/18 at 16:30 Magnesium Hydroxide (Milk Of Mag) 30 ml DAILY PRN PO CONSTIPATION; Start 12/16/18 at 16:30 Lactulose (Enulose) 20 gm DAILY PRN PO CONSTIPATION; Start 12/16/18 at 16:30 Miscellaneous Information (Pending [facility] Order For Wound Care) This patient lieberman... PRN PRN XX WOUND CARE; Start 12/16/18 at 16:30 Cephalexin (Keflex) 500 mg Q6 PO Last administered on 12/18/18at 11:55; Admin Dose 500 MG; Start 12/16/18 at 18:00; Stop 12/27/18 at 17:59 Apixaban (Eliquis) 2.5 mg BID PO Last administered on 12/18/18 08:14; Admin Dose 2.5 MG; Start 12/16/18 at 21:00 Bisacodyl (Dulcolax) 5 mg DAILY PRN PO CONSTIPATION; Start 12/16/18 at 17:00 Neomycin/ Polymyxin/ Bacitracin (Neosporin Topical Oint) 1 applic DAILY TOP Last administered on 12/18/18at 08:16; Admin Dose 1 APPLIC; Start 12/17/18 at 09:00 DARIAN ALBARRAN NP Dec 18, 2018 13:00
--- NOTE | 2018-12-18 13:29 | PN ---
Date/Time of Note Date/Time of Note DATE: 12/18/18 TIME: 13:27 Subjective comfortable Objective Vital Signs Date Temp Pulse Resp B/P (MAP) Pulse Ox O2 O2 Flow FiO2 Time Delivery Rate 12/18/18 98.3 56 18 113/61 98 Room Air 07:30 (78) Intake and Output 12/17/18 12/17/18 12/18/18 1515:00 23:00 07:00 IntakeIntake Total 550 ml 1400 ml 350 ml OutputOutput Total 601 ml 350 ml BalanceBalance 550 ml 799 ml 0 ml Exam pulm-cta min assist Results/Medications Result Diagram: 12/17/1814 12/17/18613 Medications Current Medications Acetaminophen (Tylenol Tab) 650 mg Q4H PRN PO MILD PAIN(1-3)OR ELEVATED TEMP; Start 12/16/18 at 16:30 Docusate Sodium (Colace) 100 mg BID PO Last administered on 12/18/18at 08:14; Admin Dose 100 MG; Start 12/16/18 at 21:00 Senna (Senokot) 1 tab DAILY PO Last administered on 12/18/18at 08:14; Admin Dose 1 TAB; Start 12/16/18 at 21:00 Bisacodyl (Dulcolax Supp) 10 mg DAILY PRN [place] CONSTIPATION; Start 12/16/18 at 16:30 Magnesium Hydroxide (Milk Of Mag) 30 ml DAILY PRN PO CONSTIPATION; Start 12/16/18 at 16:30 Lactulose (Enulose) 20 gm DAILY PRN PO CONSTIPATION; Start 12/16/18 at 16:30 Miscellaneous Information (Pending [facility] Order For Wound Care) This patient lieberman... PRN PRN XX WOUND CARE; Start 12/16/18 at 16:30 Cephalexin (Keflex) 500 mg Q6 PO Last administered on 12/18/18at 11:55; Admin Dose 500 MG; Start 12/16/18 at 18:00; Stop 12/27/18 at 17:59 Apixaban (Eliquis) 2.5 mg BID PO Last administered on 12/18/18at 08:14; Admin Dose 2.5 MG; Start 12/16/18 at 21:00 Bisacodyl (Dulcolax) 5 mg DAILY PRN PO CONSTIPATION; Start 12/16/18 at 17:00 Neomycin/ Polymyxin/ Bacitracin (Neosporin Topical Oint) 1 applic DAILY TOP Last administered on 12/18/18at 08:16; Admin Dose 1 APPLIC; Start 12/17/18 at 09:00 Assessment/Plan Additional Assessment/Plan Rehab- Acute on chronic encephalopathy; History of cerebrovascular accident. Continue rehab program Atrial fibrillation. Recent fall with left elbow contusion and abrasion Urinary tract infection. Acute kidney injury. Hypertension, which has been improving. CARLOS ROD MD Dec 18, 2018 13:29
[2018-12-18 14:00] VITALS: BP 102/57; PULSE 57; RESP 18
[2018-12-18 20:00] VITALS: BP 101/58; RESP 17
[2018-12-19 03:00] VITALS: BP 106/61; PULSE 59; RESP 18
[2018-12-19] MEDS: CEPHALEXIN 500 MG CAP PO SCH ×3 (05:09→18:26)
[2018-12-19 08:00] VITALS: BP 106/68; PULSE 67
[2018-12-19] MEDS: SENNA TAB PO SCH (08:23)
[2018-12-19] MEDS: APIXABAN 5 MG TABLET PO SCH ×2 (08:24→20:32)
[2018-12-19] MEDS: DOCUSATE SODIUM 100 MG CAP PO SCH ×2 (08:24→20:32)
--- NOTE | 2018-12-19 13:04 | PN ---
Date/Time of Note Date/Time of Note DATE: 12/19/18 TIME: 13:03 Assessment/Plan VTE Prophylaxis Risk score (from Nsg)>0 risk: 4 SCD applied (from Ns): No SCD contraindicated: low risk/ambulating Pharmacological prophylaxis: heparin Lines/Catheters IV Catheter Type (from Nrsg): Saline Lock Urinary Cath still in place: No Assessment/Plan Hospital Course Patient at this time is going through the rehabilitation protocol. This will be modestly slowed down by his underlying dementia. Continue with care as best as possible. Result Diagram: 12/17/1814 12/17/18613 Subjective 24 Hr Interval Summary Free Text/Dictation Patient sleeping in bed, arousable Constitutional: no complaints Respiratory: no complaints Cardiovascular: no complaints Exam/Review of Systems Exam Vitals Vital Signs Date Temp Pulse Resp B/P (MAP) Pulse Ox O2 O2 Flow FiO2 Time Delivery Rate 12/19/18 97.5 67 106/68 96 08:00 (81) 12/19/18 18 Room Air 03:00 Intake and Output 12/18/18 12/18/18 12/19/18 1515:00 23:00 07:00 IntakeIntake Total 1520 ml 250 ml OutputOutput Total 220 ml BalanceBalance 1300 ml 250 ml Respiratory: clear to auscultation, normal air movement Cardiovascular: nl pulses, irregular rhythm Gastrointestinal: soft, nl liver, spleen, non-tender Neurological: PARTS SALVAGER II-XII intact Medications Medication Current Medications Acetaminophen (Tylenol Tab) 650 mg Q4H PRN PO MILD PAIN(1-3)OR ELEVATED TEMP; Start 12/16/18 at 16:30 Docusate Sodium (Colace) 100 mg BID PO Last administered on 12/19/18at 08:24; Admin Dose 100 MG; Start 12/16/18 at 21:00 Senna (Senokot) 1 tab DAILY PO Last administered on 12/19/18at 08:23; Admin Dose 1 TAB; Start 12/16/18 at 21:00 Bisacodyl (Dulcolax Supp) 10 mg DAILY PRN [place] CONSTIPATION; Start 12/16/18 at 16:30 Magnesium Hydroxide (Milk Of Mag) 30 ml DAILY PRN PO CONSTIPATION; Start 12/16/18 at 16:30 Lactulose (Enulose) 20 gm DAILY PRN PO CONSTIPATION; Start 12/16/18 at 16:30 Miscellaneous Information (Pending [facility] Order For Wound Care) This patient lieberman... PRN PRN XX WOUND CARE; Start 12/16/18 at 16:30 Cephalexin (Keflex) 500 mg Q6 PO Last administered on 12/19/18at 12:39; Admin Dose 500 MG; Start 12/16/18 at 18:00; Stop 12/27/18 at 17:59 Apixaban (Eliquis) 2.5 mg BID PO Last administered on 12/19/18at 08:24; Admin Dose 2.5 MG; Start 12/16/18 at 21:00 Bisacodyl (Dulcolax) 5 mg DAILY PRN PO CONSTIPATION; Start 12/16/18 at 17:00 Neomycin/ Polymyxin/ Bacitracin (Neosporin Topical Oint) 1 applic DAILY TOP Last administered on 12/18/18at 08:16; Admin Dose 1 APPLIC; Start 12/17/18 at 09:00 KONG LOPEZ MD Dec 19, 2018 13:04
[2018-12-19] MEDS: NEOMYC/POLYMYX/BACIT 30 GM OINT TOP SCH (13:53)
[2018-12-19 14:00] VITALS: BP 115/65; PULSE 72; RESP 18
[2018-12-19] MEDS: ACETAMINOPHEN 325 MG TAB PO PRN (16:41)
[2018-12-19 20:00] VITALS: BP 91/43; PULSE 73; RESP 16
[2018-12-20] MEDS: CEPHALEXIN 500 MG CAP PO SCH ×4 (00:31→17:34)
[2018-12-20 02:00] VITALS: BP 107/63; PULSE 55; RESP 18
[2018-12-20 08:00] VITALS: BP 122/62; PULSE 62; RESP 18
--- NOTE | 2018-12-20 08:14 | PN ---
Date/Time of Note Date/Time of Note DATE: 12/20/18 TIME: 08:14 Subjective Patient up for activities Objective Vital Signs Date Temp Pulse Resp B/P (MAP) Pulse Ox O2 O2 Flow FiO2 Time Delivery Rate 12/20/18 97.3 55 18 107/63 98 Room Air 02:00 (78) Intake and Output 12/19/18 12/19/18 12/20/18 1515:00 23:00 07:00 IntakeIntake Total 1000 ml 350 ml BalanceBalance 1000 ml 350 ml Exam pulm-cta sba 80 feet Results/Medications Result Diagram: 12/17/1861312/17/18613 Medications Current Medications Acetaminophen (Tylenol Tab) 650 mg Q4H PRN PO MILD PAIN(1-3)OR ELEVATED TEMP Last administered on 12/19/18at 16:41; Admin Dose 650 MG; Start 12/16/18 at 16:30 Docusate Sodium (Colace) 100 mg BID PO Last administered on 12/19/18at 20:32; Admin Dose 100 MG; Start 12/16/18 at 21:00 Senna (Senokot) 1 tab DAILY PO Last administered on 12/19/18 08:23; Admin Dose 1 TAB; Start 12/16/18 at 21:00 Bisacodyl (Dulcolax Supp) 10 mg DAILY PRN [place] CONSTIPATION; Start 12/16/18 at 16:30 Magnesium Hydroxide (Milk Of Mag) 30 ml DAILY PRN PO CONSTIPATION; Start 12/16/18 at 16:30 Lactulose (Enulose) 20 gm DAILY PRN PO CONSTIPATION; Start 12/16/18 at 16:30 [facility] This patient lieberman... PRN PRN XX WOUND CARE; Start 12/16/18 at 16:30 Cephalexin (Keflex) 500 mg Q6 PO Last administered on 12/20/18at 06:25; Admin Dose 500 MG; Start 12/16/18 at 18:00; Stop 12/27/18 at 17:59 Apixaban (Eliquis) 2.5 mg BID PO Last administered on 12/19/18at 20:32; Admin Dose 2.5 MG; Start 12/16/18 at 21:00 Bisacodyl (Dulcolax) 5 mg DAILY PRN PO CONSTIPATION; Start 12/16/18 at 17:00 Neomycin/ Polymyxin/ Bacitracin (Neosporin Topical Oint) 1 applic DAILY TOP Last administered on 12/19/18at 13:53; Admin Dose 1 APPLIC; Start 12/17/18 at 09:00 Assessment/Plan Additional Assessment/Plan Rehab- Acute on chronic encephalopathy; History of cerebrovascular accident. Continue rehab treatment plan Atrial fibrillation. Recent fall with left elbow contusion and abrasion Urinary tract infection. Acute kidney injury. Hypertension, which has been improving. CARLOS ROD MD Dec 20, 2018 08:14
[2018-12-20] MEDS: SENNA TAB PO SCH (10:13)
[2018-12-20] MEDS: APIXABAN 5 MG TABLET PO SCH ×2 (10:14→20:41)
[2018-12-20] MEDS: DOCUSATE SODIUM 100 MG CAP PO SCH ×2 (10:14→20:41)
[2018-12-20] MEDS: NEOMYC/POLYMYX/BACIT 30 GM OINT TOP SCH (10:15)
--- NOTE | 2018-12-20 12:36 | PN ---
Date/Time of Note Date/Time of Note DATE: 12/20/18 TIME: 12:33 Assessment/Plan VTE Prophylaxis Risk score (from Ns)>0 risk: 4 SCD applied (from [facility] No SCD contraindicated: low risk/ambulating Pharmacological prophylaxis: heparin Pharm contraindication: low risk/ambulating Lines/Catheters [facility]from [facility] Saline Lock Urinary Cath still in place: No Assessment/Plan Hospital Course Patient at this time is going through the rehabilitation protocol. This will be modestly slowed down by his underlying dementia. Continue with care as best as possible. Problems: (1) E. coli UTI (urinary tract infection) Onset Date: ~ 12/12/2018 Status: Acute Comment: Completing antibiotic therapy (2) Dementia Status: Chronic Comment: Pleasant gentleman who is working with the acute rehabilitation protocol Qualifiers: Dementia type: vascular dementia Dementia behavioral disturbance: without behavioral disturbance Qualified Codes: F01.50 - Vascular dementia without behavioral disturbance (3) Paroxysmal atrial fibrillation Status: Chronic Comment: Presently in sinus rhythm. On formalized anticoagulant therapy (4) History of CVA (cerebrovascular accident) Status: Chronic Comment: Noted. Result Diagram: 12/17/1814 12/17/18613 Subjective 24 Hr Interval Summary Free Text/Dictation Patient lying in bed offers no complaints Respiratory: no complaints Cardiovascular: no complaints Gastrointestinal: no complaints Exam/Review of Systems Exam Vitals Vital Signs Date Temp Pulse Resp B/P (MAP) Pulse Ox O2 O2 Flow FiO2 Time Delivery Rate 12/20/18 98.5 62 18 122/62 98 Room Air 08:00 (82) Intake and Output 12/19/18 12/19/18 12/20/18 1515:00 23:00 07:00 IntakeIntake Total 1000 ml 350 ml BalanceBalance 1000 ml 350 ml Exam Eating lunch Respiratory: clear to auscultation, normal air movement Gastrointestinal: soft, nl liver, spleen, non-tender Extremities: normal pulses Medications Medication Current Medications Acetaminophen (Tylenol Tab) 650 mg Q4H PRN PO MILD PAIN(1-3)OR ELEVATED TEMP Last administered on 12/19/18at 16:41; Admin Dose 650 MG; Start 12/16/18 at 16:30 Docusate Sodium (Colace) 100 mg BID PO Last administered on 12/20/18at 10:14; Admin Dose 100 MG; Start 12/16/18 at 21:00 Senna (Senokot) 1 tab DAILY PO Last administered on 12/20/18at 10:13; Admin Dose 1 TAB; Start 12/16/18 at 21:00 Bisacodyl (Dulcolax Supp) 10 mg DAILY PRN [place] CONSTIPATION; Start 12/16/18 at 16:30 Magnesium Hydroxide (Milk Of Mag) 30 ml DAILY PRN PO CONSTIPATION; Start 12/16/18 at 16:30 Lactulose (Enulose) 20 gm DAILY PRN PO CONSTIPATION; Start 12/16/18 at 16:30 Miscellaneous Information [facility] This patient lieberman... PRN PRN XX WOUND CARE; Start 12/16/18 at 16:30 Cephalexin (Keflex) 500 mg Q6 PO Last administered on 12/20/18at 06:25; Admin Dose 500 MG; Start 12/16/18 at 18:00; Stop 12/27/18 at 17:59 Apixaban (Eliquis) 2.5 mg BID PO Last administered on 12/20/18at 10:14; Admin Dose 2.5 MG; Start 12/16/18 at 21:00 Bisacodyl (Dulcolax) 5 mg DAILY PRN PO CONSTIPATION; Start 12/16/18 at 17:00 Neomycin/ Polymyxin/ Bacitracin (Neosporin Topical Oint) 1 applic DAILY TOP Last administered on 12/20/18at 10:15; Admin Dose 1 APPLIC; Start 12/17/18 at 09:00 KONG LOPEZ MD Dec 20, 2018 12:36
[2018-12-20 13:30] VITALS: BP 110/63; PULSE 64; RESP 18
[2018-12-20 20:00] VITALS: BP 118/57; PULSE 66; RESP 17
[2018-12-21] MEDS: CEPHALEXIN 500 MG CAP PO SCH ×5 (00:13→23:17)
[2018-12-21 02:00] VITALS: BP 123/58; PULSE 63; RESP 18
[2018-12-21 06:00] VITALS: BP 120/61; RESP 19
[2018-12-21] MEDS: SENNA TAB PO SCH (08:04)
[2018-12-21] MEDS: DOCUSATE SODIUM 100 MG CAP PO SCH ×2 (08:05→21:19)
[2018-12-21] MEDS: APIXABAN 5 MG TABLET PO SCH ×2 (08:05→21:19)
[2018-12-21] MEDS: NEOMYC/POLYMYX/BACIT 30 GM OINT TOP SCH (08:05)
[2018-12-21 08:08] VITALS: BP 110/63; PULSE 70; RESP 18
--- NOTE | 2018-12-21 11:18 | PN ---
Date/Time of Note Date/Time of Note DATE: 12/21/18 TIME: 11:15 Assessment/Plan VTE Prophylaxis Risk score (from Ns)>0 risk: 4 SCD applied (from Ns): No SCD contraindicated: other Pharmacological prophylaxis: apixaban Lines/Catheters IV [facility] (from [facility] Saline Lock Urinary Cath still in place: No Assessment/Plan Hospital Course SUBJECTIVE: Patient tends to be awake/restless at night and sleeps mostly during daytime. OBJECTIVE: Vital signs-see below PHYSICAL EXAM: Constitutional: Thin built, elderly male,not in acute distress. HEENT: Head atraumatic and normocephalic. Eyes: Extraocular muscles intact. Anicteric sclerae. Pupils equal bilaterally, reactive to light.Ear canal w/Cerumen/debris. NECK: Supple without lymph node. CHEST: Clear and good breath sounds equally. No wheezing. No rhonchi. HEART: S1, S2. Regular rate and rhythm. ABDOMEN: Soft/non tender with no rebound tenderness. Bowel sounds were present. EXTREMITIES: No cyanosis, clubbing or edema. NEUROLOGIC:+ Mildly confused/forgetful. Otherwise for the most part alert and o riented x3. No focal deficit. No sensory deficit. PSYCHOSOCIAL: No signs of depression. INTEGUMENTARY: No open wounds. ASSESSMENT AND PLAN: Encephalopathy with dementia Mentation back to baseline. Continue supportive care UTI -On Keflex treatment with stop date placed. Paroxysmal atrial fibrillation -Continue current medications/Eliquis H/o CVA - no residual defects noted Chronic anemia -Stable H&H. 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 -Continue supportive care. Will try melatonin at night. Prophylaxis: Eliquis. Patient is seen in collaboration with Result Diagram: 12/17/1861312/17/18613 Exam/Review of Systems Exam Vitals Vital Signs Date Temp Pulse Resp B/P (MAP) Pulse Ox O2 O2 Flow FiO2 Time Delivery Rate 12/21/18 98.2 70 18 110/63 Room Air 08:08 (79) 12/21/18 96 06:00 Intake and Output 12/20/18 12/20/18 12/21/18 1414:59 22:59 06:59 IntakeIntake Total 400 ml 250 ml 50 ml OutputOutput Total 100 ml 100 ml BalanceBalance 300 ml 250 ml -50 ml Medications Medication Current Medications Acetaminophen (Tylenol Tab) 650 mg Q4H PRN PO MILD PAIN(1-3)OR ELEVATED TEMP Last administered on 12/19/18 16:41; Admin Dose 650 MG; Start 12/16/18 at 16:30 Docusate Sodium (Colace) 100 mg BID PO Last administered on 12/21/18 08:05; Admin Dose 100 MG; Start 12/16/18 at 21:00 Senna (Senokot) 1 tab DAILY PO Last administered on 12/21/18 08:04; Admin Dose 1 TAB; Start 12/16/18 at 21:00 Bisacodyl (Dulcolax Supp) 10 mg DAILY PRN [place] CONSTIPATION; Start 12/16/18 at 16:30 Magnesium Hydroxide (Milk Of Mag) 30 ml DAILY PRN PO CONSTIPATION; Start 12/16/18 at 16:30 Lactulose (Enulose) 20 gm DAILY PRN PO CONSTIPATION; Start 12/16/18 at 16:30 Miscellaneous Information (Pending [facility] Order For Wound Care) This patient lieberman... PRN PRN XX WOUND CARE; Start 12/16/18 at 16:30 Cephalexin (Keflex) 500 mg Q6 PO Last administered on 12/21/18 07:03; Admin Dose 500 MG; Start 12/16/18 at 18:00; Stop 12/27/18 at 17:59 Apixaban (Eliquis) 2.5 mg BID PO Last administered on 12/21/18 08:05; Admin Dose 2.5 MG; Start 12/16/18 at 21:00 Bisacodyl (Dulcolax) 5 mg DAILY PRN PO CONSTIPATION; Start 12/16/18 at 17:00 Neomycin/ Polymyxin/ Bacitracin (Neosporin Topical Oint) 1 applic DAILY TOP Last administered on 12/21/18 08:05; Admin Dose 1 APPLIC; Start 12/17/18 at 09:00 DARIAN ALBARRAN NP Dec 21, 2018 11:18
--- NOTE | 2018-12-21 13:27 | PN ---
Date/Time of Note Date/Time of Note DATE: 12/21/18 TIME: 13:26 Objective Vital Signs Date Temp Pulse Resp B/P (MAP) Pulse Ox O2 O2 Flow FiO2 Time Delivery Rate 12/21/18 98.2 70 18 110/63 Room Air 08:08 (79) 12/21/18 96 06:00 Intake and Output 12/20/18 12/20/18 12/21/18 1515:00 23:00 07:00 IntakeIntake Total 400 ml 250 ml 50 ml OutputOutput Total 100 ml 100 ml BalanceBalance 300 ml 250 ml -50 ml Exam INTERDISCIPLINARY TEAM CONFERENCE Attended by PT, OT, ST, Plastic Boat Patcher, Social Work, Rehabilitation Nursing, Extra Gang Supervisor and Mechanic ForemanWaste Machine Operator Exam: Pulm- cta Abd-soft BOWEL- Cont BLADDER-Cont SKIN- improving OT- DRESSING- cga BATHING-cga TOILETING-cga PT- BED MOBILITY-sba TRANSFERS-cga AMBULATION-cga 80 feet SPEECH- COGNITION- min/mod Dysphagia- soft diet A/P- Interdisciplinary team conference held today. Please see interdisciplinary sheet. Working toward d.c. on 12/28 with post discharge follow up of physical therapy, occupational therapy. Results/Medications Result Diagram: 12/17/1861312/17/18613 Medications Current Medications Acetaminophen (Tylenol Tab) 650 mg Q4H PRN PO MILD PAIN(1-3)OR ELEVATED TEMP Last administered on 12/19/18at 16:41; Admin Dose 650 MG; Start 12/16/18 at 16:30 Docusate Sodium (Colace) 100 mg BID PO Last administered on 12/21/18at 08:05; Admin Dose 100 MG; Start 12/16/18 at 21:00 Senna (Senokot) 1 tab DAILY PO Last administered on 12/21/18at 08:04; Admin Dose 1 TAB; Start 12/16/18 at 21:00 Bisacodyl (Dulcolax Supp) 10 mg DAILY PRN [place] CONSTIPATION; Start 12/16/18 at 16:30 Magnesium Hydroxide (Milk Of Mag) 30 ml DAILY PRN PO CONSTIPATION; Start 12/16/18 at 16:30 Lactulose (Enulose) 20 gm DAILY PRN PO CONSTIPATION; Start 12/16/18 at 16:30 Miscellaneous Information (Pending [facility] Order For Wound Care) This patient lieberman... PRN PRN XX WOUND CARE; Start 12/16/18 at 16:30 Cephalexin (Keflex) 500 mg Q6 PO Last administered on 12/21/18at 12:16; Admin Dose 500 MG; Start 12/16/18 at 18:00; Stop 12/27/18 at 17:59 Apixaban (Eliquis) 2.5 mg BID PO Last administered on 12/21/18at 08:05; Admin Dose 2.5 MG; Start 12/16/18 at 21:00 Bisacodyl (Dulcolax) 5 mg DAILY PRN PO CONSTIPATION; Start 12/16/18 at 17:00 Neomycin/ Polymyxin/ Bacitracin (Neosporin Topical Oint) 1 applic DAILY TOP Last administered on 12/21/18at 08:05; Admin Dose 1 APPLIC; Start 12/17/18 at 09:00 Melatonin (Melatonin) 5 mg HS PO ; Start 12/21/18 at 21:00 CARLOS ROD MD Dec 21, 2018 13:26
[2018-12-21 14:00] VITALS: BP 110/63; PULSE 70; RESP 18
[2018-12-21 20:00] VITALS: BP 119/58; PULSE 70; RESP 16
[2018-12-21] MEDS: MELATONIN 5 MG TABLET PO SCH (21:19)
[2018-12-21] MEDS: ACETAMINOPHEN 325 MG TAB PO PRN (21:29)
[2018-12-22 02:00] VITALS: BP 122/63; PULSE 58; RESP 16
[2018-12-22] MEDS: CEPHALEXIN 250 MG CAP PO SCH ×4 (06:21→23:09)
[2018-12-22 08:12] VITALS: BP 104/64; PULSE 62; RESP 18
[2018-12-22] MEDS: DOCUSATE SODIUM 100 MG CAP PO SCH ×2 (08:56→20:26)
[2018-12-22] MEDS: APIXABAN 5 MG TABLET PO SCH ×2 (08:56→20:26)
[2018-12-22] MEDS: SENNA TAB PO SCH (08:56)
[2018-12-22] MEDS: NEOMYC/POLYMYX/BACIT 30 GM OINT TOP SCH (08:56)
--- NOTE | 2018-12-22 12:04 | PN ---
Date/Time of Note Date/Time of Note DATE: 12/22/18 TIME: 12:02 Assessment/Plan VTE Prophylaxis Risk score (from Ns)>0 risk: 4 SCD applied (from Ns): No SCD contraindicated: other Pharmacological prophylaxis: apixaban Lines/Catheters [facility]from [facility] Saline Lock Urinary Cath still in place: No Assessment/Plan Hospital Course SUBJECTIVE: Patient slept good last nite.Participates w/PT OBJECTIVE: Vital signs-see below PHYSICAL EXAM: Constitutional: Thin built, elderly male,not in acute distress. HEENT: Head atraumatic and normocephalic. Eyes: Extraocular muscles intact. Anicteric sclerae. Pupils equal bilaterally, reactive to light.Ear canal w/Cerumen/debris. NECK: Supple without lymph node. CHEST: Clear and good breath sounds equally. No wheezing. No rhonchi. HEART: S1, S2. Regular rate and rhythm. ABDOMEN: Soft/non tender with no rebound tenderness. Bowel sounds were present. EXTREMITIES: No cyanosis, clubbing or edema. NEUROLOGIC:+ Mildly confused/forgetful. Otherwise for the most part alert and oriented x3. No focal deficit. No sensory deficit. PSYCHOSOCIAL: No signs of depression. INTEGUMENTARY: No open wounds. ASSESSMENT AND PLAN: Encephalopathy with dementia Mentation back to baseline. Continue supportive care UTI -On Keflex treatment with stop date placed. Paroxysmal atrial fibrillation -Continue current medications/Eliquis H/o CVA - no residual defects noted Chronic anemia -Stable H&H. 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 -Continue supportive care. -Cont.Melatonin Prophylaxis: Eliquis. Patient is seen in collaboration with Exam/Review of Systems Exam Vitals Vital Signs Date Temp Pulse Resp B/P (MAP) Pulse Ox O2 O2 Flow FiO2 Time Delivery Rate 12/22/18 98.5 62 18 104/64 95 Room Air 08:12 (77) Intake and Output 12/21/18 12/21/18 12/22/18 1515:00 23:00 07:00 IntakeIntake Total 720 ml 350 ml OutputOutput Total 700 ml BalanceBalance 720 ml -350 ml Medications Medication Current Medications Acetaminophen (Tylenol Tab) 650 mg Q4H PRN PO MILD PAIN(1-3)OR ELEVATED TEMP Last administered on 4/29/19at 21:29; Admin Dose 650 MG; Start 12/16/18 at 16:30 Docusate Sodium (Colace) 100 mg BID PO Last administered on 12/22/18 08:56; Admin Dose 100 MG; Start 12/16/18 at 21:00 Senna (Senokot) 1 tab DAILY PO Last administered on 12/22/18 08:56; Admin Dose 1 TAB; Start 12/16/18 at 21:00 Bisacodyl (Dulcolax Supp) 10 mg DAILY PRN [place] CONSTIPATION; Start 12/16/18 at 16:30 Magnesium Hydroxide (Milk Of Mag) 30 ml DAILY PRN PO CONSTIPATION; Start 12/16 at 16:30 Lactulose (Enulose) 20 gm DAILY PRN PO CONSTIPATION; Start 12/16/18 at 16:30 Miscellaneous Information [facility] This patient lieberman... PRN PRN XX WOUND CARE; Start 12/16/18 at 16:30 Apixaban (Eliquis) 2.5 mg BID PO Last administered on 12/22/18 08:56; Admin Dose 2.5 MG; Start 12/16/18 at 21:00 Bisacodyl (Dulcolax) 5 mg DAILY PRN PO CONSTIPATION; Start 12/16/18 at 17:00 Neomycin/ Polymyxin/ Bacitracin (Neosporin Topical Oint) 1 applic DAILY TOP Last administered on 12/22/18 08:56; Admin Dose 1 APPLIC; Start 12/17/18 at 09:00 Melatonin (Melatonin) 5 mg HS PO Last administered on 12/21/18 21:19; Admin Dose 5 MG; Start 12/21/18 at 21:00 Cephalexin (Keflex) 500 mg Q6 PO Last administered on 12/22/18 06:21; Admin Do se 500 MG; Start 12/22/18 at 06:00; Stop 12/27/18 at 17:59 DARIAN ALBARRAN NP Dec 22, 2018 12:04
--- NOTE | 2018-12-22 13:15 | PN ---
Date/Time of Note Date/Time of Note DATE: 12/22/18 TIME: 13:14 Subjective No new complaints Objective Vital Signs Date Temp Pulse Resp B/P (MAP) Pulse Ox O2 O2 Flow FiO2 Time Delivery Rate 12/22/18 98.5 62 18 104/64 95 Room Air 08:12 (77) Intake and Output 12/21/18 12/21/18 12/22/18 1515:00 23:00 07:00 IntakeIntake Total 720 ml 350 ml OutputOutput Total 700 ml BalanceBalance 720 ml -350 ml Exam pulm-cta sba 125 feet Results/Medications Medications Current Medications Acetaminophen (Tylenol Tab) 650 mg Q4H PRN PO MILD PAIN(1-3)OR ELEVATED TEMP Last administered on 12/21/18at 21:29; Admin Dose 650 MG; Start 12/16/18 at 16:30 Docusate Sodium (Colace) 100 mg BID PO Last administered on 12/22/18 08:56; Admin Dose 100 MG; Start 12/16/18 at 21:00 Senna (Senokot) 1 tab DAILY PO Last administered on 12/22/18 08:56; Admin Dose 1 TAB; Start 12/16/18 at 21:00 Bisacodyl (Dulcolax Supp) 10 mg DAILY PRN [place] CONSTIPATION; Start 12/16/18 at 16:30 Magnesium Hydroxide (Milk Of Mag) 30 ml DAILY PRN PO CONSTIPATION; Start 12/16/18 at 16:30 Lactulose (Enulose) 20 gm DAILY PRN PO CONSTIPATION; Start 12/16/18 at 16:30 Miscellaneous Information (Pending [facility] Order For Wound Care) This patient lieberman... PRN PRN XX WOUND CARE; Start 12/16/18 at 16:30 Apixaban (Eliquis) 2.5 mg BID PO Last administered on 12/22/18 08:56; Admin Dose 2.5 MG; Start 12/16/18 at 21:00 Bisacodyl (Dulcolax) 5 mg DAILY PRN PO CONSTIPATION; Start 12/16/18 at 17:00 Neomycin/ Polymyxin/ Bacitracin (Neosporin Topical Oint) 1 applic DAILY TOP Last administered on 12/22/18 08:56; Admin Dose 1 APPLIC; Start 12/17/18 at 09:00 Melatonin (Melatonin) 5 mg HS PO Last administered on 12/21/18at 21:19; Admin Dose 5 MG; Start 12/21/18 at 21:00 Cephalexin (Keflex) 500 mg Q6 PO Last administered on 12/22/18at 13:05; Admin Dose 500 MG; Start 12/22/18 at 06:00; Stop 12/27/18 at 17:59 Assessment/Plan Additional Assessment/Plan Rehab- Acute on chronic encephalopathy; History of cerebrovascular accident. Continue rehab interdisciplinary program Atrial fibrillation. Recent fall with left elbow contusion and abrasion Urinary tract infection. Acute kidney injury. Hypertension, which has been improving. CARLOS ROD MD Dec 22, 2018 13:15
--- NOTE | 2018-12-22 19:35 | CONS ---
DATE OF ADMISSION: 12/16/2018 DATE OF CONSULTATION: 12/22/2018 TYPE OF CONSULTATION: Psychological. REFERRING PHYSICIAN: Marla Campa MD CONSULTING PSYCHOLOGIST: Reyes Adan, PhD REASON FOR CONSULTATION: This consultation was requested by Dr. Bayron Campa in order to evaluate the cognitive and emotional functioning of this patient related to his present medical condition. HISTORY OF PRESENT ILLNESS: The patient is an 83-year-old male. Has a history of CVA, atrial fibrillation, was noted to have increased weakness which contributed to a fall at home. The patient sustained an elbow injury. The patient was noted to have significant confusion. The patient was felt to likely have acute on chronic encephalopathy secondary to urinary tract infection. The patient was cleared medically and then sent to the acute rehabilitation unit for acute multidisciplinary rehabilitation. The patient is motivated to get better. The patient is confused. The confusion could relate to issues regarding the urinary tract infection or the old CVA. The patient's mood has been anxious. FAMILY AND SOCIAL HISTORY: The patient lives at home with the family and hopes to return there upon discharge. MEDICATIONS: The patient is currently not on any psychotropic medications. SUBSTANCE USE: The patient denies any use of alcohol or other drugs. The patient reports that he does not smoke. MENTAL STATUS EXAMINATION: APPEARANCE: The patient was seen in bed. He appears to be of average height and thin. The patient says that he is right-handed. BEHAVIOR: The patient was cooperative during the consultation. The patient was confused and had difficulty with many of the questions, but he did attempt to answer all questions presented to him. MOOD AND AFFECT: The patient's mood appears to be somewhat depressed. Affect does appear to be slightly anxious. PERCEPTION: The patient reports no hallucinations or delusions. The patient was alert to person, place but not exactly to situation and time. MEMORY AND COGNITION: The patient's memory and cognition appear to be impaired. Difficulty recalling recent and remote events. He was able to say part of the name of the hospital as "[facility]," not come up with the rest of the name. The patient did say the month was 4 or 5, but did not know which one it is. The patient stated that he was born in 1933, actually was born in 1935. The patient was unable to say who the President of [facility] is. When he did puzzle about it over time, he came up with "Daniel Duck." The patient could not do any serial 7 subtraction from 100. Overall, the patient is having some cognitive dysfunction. It is not clear at the present time whether this is cognitive dysfunction that relates to his CVA or whether it is related to his urinary tract infection. At the present time, the patient is starting to clear just slightly. INTELLIGENCE: Intelligence would appear to fall in the average range when he is functioning adequately. INSIGHT: Poor. JUDGMENT: Poor. The patient is very concerned about his present medical condition. The patient does want to return home be as independent as he can be. The patient at the present time is feeling very anxious and confused. DISCUSSION: The patient can likely benefit from some cognitive/behavioral psychotherapy while he is on the unit. Psychotherapy would focus on his underlying confusion as well as his mood. The patient possibly could benefit from memory book in order to try and focus cognition. DIAGNOSTIC IMPRESSION: 1. 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 2. F06.8, cognitive disorder, not otherwise specified. Thank you very much, Dr. Bayron Campa, for referring this individual. Please do not hesitate to call if you have additional questions. Dictated By: REYES ADAN PHD DANIEL/JM Conf#: [id number] DID#: [id number]
[2018-12-22] MEDS: MELATONIN 5 MG TABLET PO SCH (20:26)
[2018-12-22 20:42] VITALS: BP 125/61; PULSE 73; RESP 18
[2018-12-23 02:45] VITALS: BP 121/70; PULSE 61; RESP 18
[2018-12-23] MEDS: CEPHALEXIN 250 MG CAP PO SCH ×4 (06:54→23:29)
[2018-12-23 08:00] VITALS: BP 107/59; PULSE 65; RESP 18
[2018-12-23] MEDS: APIXABAN 5 MG TABLET PO SCH ×2 (08:20→20:07)
[2018-12-23] MEDS: SENNA TAB PO SCH (08:20)
[2018-12-23] MEDS: DOCUSATE SODIUM 100 MG CAP PO SCH ×2 (08:20→20:07)
[2018-12-23] MEDS: NEOMYC/POLYMYX/BACIT 30 GM OINT TOP SCH (08:20)
--- NOTE | 2018-12-23 11:55 | PN ---
Date/Time of Note Date/Time of Note DATE: 12/23/18 TIME: 11:54 Assessment/Plan VTE Prophylaxis Risk score (from Ns)>0 risk: 4 SCD applied (from Ns): No SCD contraindicated: other Pharmacological prophylaxis: apixaban Lines/Catheters [facility]from [facility] Saline Lock Urinary Cath still in place: No Assessment/Plan Hospital Course SUBJECTIVE: no acute issues OBJECTIVE: Vital signs-see below PHYSICAL EXAM: Constitutional: Thin built, elderly male,not in acute distress. HEENT: Head atraumatic and normocephalic. Eyes: Extraocular muscles intact. Anicteric sclerae. Pupils equal bilaterally, reactive to light.Ear canal w/Cerumen/debris. NECK: Supple without lymph node. CHEST: Clear and good breath sounds equally. No wheezing. No rhonchi. HEART: S1, S2. Regular rate and rhythm. ABDOMEN: Soft/non tender with no rebound tenderness. Bowel sounds were present. EXTREMITIES: No cyanosis, clubbing or edema. NEUROLOGIC:+ Mildly confused/forgetful. Otherwise for the most part alert and oriented x3. No focal deficit. No sensory deficit. PSYCHOSOCIAL: No signs of depression. INTEGUMENTARY: No open wounds. ASSESSMENT AND PLAN: Encephalopathy with dementia Mentation back to baseline. Continue supportive care UTI -On Keflex treatment with stop date placed. Paroxysmal atrial fibrillation -Continue current medications/Eliquis H/o CVA - no residual defects noted Chronic anemia -Stable H&H. 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 -Continue supportive care. -Cont.Melatonin Prophylaxis: Eliquis. Patient is seen in collaboration with Exam/Review of Systems Exam Vitals Vital Signs Date Temp Pulse Resp B/P (MAP) Pulse Ox O2 O2 Flow FiO2 Time Delivery Rate 12/23/18 98.2 65 18 107/59 95 Room Air 08:00 (75) Intake and Output 12/22/18 12/22/18 12/23/18 1515:00 23:00 07:00 IntakeIntake Total 1050 ml 100 ml OutputOutput Total 700 ml 350 ml BalanceBalance 350 ml -250 ml Medications Medication Current Medications Acetaminophen (Tylenol Tab) 650 mg Q4H PRN PO MILD PAIN(1-3)OR ELEVATED TEMP Last administered on 12/21/18at 21:29; Admin Dose 650 MG; Start 12/16/18 at 16:30 Docusate Sodium (Colace) 100 mg BID PO Last administered on 12/23/18 08:20; Admin Dose 100 MG; Start 12/16/18 at 21:00 Senna (Senokot) 1 tab DAILY PO Last administered on 12/23/18 08:20; Admin Dose 1 TAB; Start 12/16/18 at 21:00 Bisacodyl (Dulcolax Supp) 10 mg DAILY PRN [place] CONSTIPATION; Start 12/16/18 at 16:30 Magnesium Hydroxide (Milk Of Mag) 30 ml DAILY PRN PO CONSTIPATION; Start 12/16/18 at 16:30 Lactulose (Enulose) 20 gm DAILY PRN PO CONSTIPATION; Start 12/16/18 at 16:30 Miscellaneous Information (Pending [facility] Order For Wound Care) This patient lieberman... PRN PRN XX WOUND CARE; Start 12/16/18 at 16:30 Apixaban (Eliquis) 2.5 mg BID PO Last administered on 12/23/18at 08:20; Admin Dose 2.5 MG; Start 12/16/18 at 21:00 Bisacodyl (Dulcolax) 5 mg DAILY PRN PO CONSTIPATION; Start 12/16/18 at 17:00 Neomycin/ Polymyxin/ Bacitracin (Neosporin Topical Oint) 1 applic DAILY TOP Last administered on 12/23/18at 08:20; Admin Dose 1 APPLIC; Start 12/17/18 at 09:00 Melatonin (Melatonin) 5 mg HS PO Last administered on 12/22/18at 20:26; Admin Dose 5 MG; Start 12/21/18 at 21:00 Cephalexin (Keflex) 500 mg Q6 PO Last administered on 12/23/18at 06:54; Admin Dose 500 MG; Start 12/22/18 at 06:00; Stop 12/27/18 at 17:59 DARIAN ALBARRAN NP December 23, 2018 11:55
--- NOTE | 2018-12-23 13:21 | PN ---
Date/Time of Note Date/Time of Note DATE: 12/23/18 TIME: 13:20 Subjective Needs encouragement for activities Objective Vital Signs Date Temp Pulse Resp B/P (MAP) Pulse Ox O2 O2 Flow FiO2 Time Delivery Rate 12/23/18 98.2 65 18 107/59 95 Room Air 08:00 (75) Intake and Output 12/22/18 12/22/18 12/23/18 1515:00 23:00 07:00 IntakeIntake Total 1050 ml 100 ml OutputOutput Total 700 ml 350 ml BalanceBalance 350 ml -250 ml Exam pulm-cta sba 150 feet Results/Medications Medications Current Medications Acetaminophen (Tylenol Tab) 650 mg Q4H PRN PO MILD PAIN(1-3)OR ELEVATED TEMP Last administered on 12/21/18at 21:29; Admin Dose 650 MG; Start 12/16/18 at 16:30 Docusate Sodium (Colace) 100 mg BID PO Last administered on 12/23/18 08:20; Admin Dose 100 MG; Start 12/16/18 at 21:00 Senna (Senokot) 1 tab DAILY PO Last administered on 12/23/18 08:20; Admin Dose 1 TAB; Start 12/16/18 at 21:00 Bisacodyl (Dulcolax Supp) 10 mg DAILY PRN [place] CONSTIPATION; Start 12/16/18 at 16:30 Magnesium Hydroxide (Milk Of Mag) 30 ml DAILY PRN PO CONSTIPATION; Start 12/16/18 at 16:30 Lactulose (Enulose) 20 gm DAILY PRN PO CONSTIPATION; Start 12/16/18 at 16:30 Miscellaneous [facility] This patient lieberman... PRN PRN XX WOUND CARE; Start 12/16/18 at 16:30 Apixaban (Eliquis) 2.5 mg BID PO Last administered on 12/23/18 08:20; Admin Dose 2.5 MG; Start 12/16/18 at 21:00 Bisacodyl (Dulcolax) 5 mg DAILY PRN PO CONSTIPATION; Start 12/16/18 at 17:00 Neomycin/ Polymyxin/ Bacitracin (Neosporin Topical Oint) 1 applic DAILY TOP Last administered on 12/23/18at 08:20; Admin Dose 1 APPLIC; Start 12/17/18 at 09:00 Melatonin (Melatonin) 5 mg HS PO Last administered on 12/22/18at 20:26; Admin Dose 5 MG; Start 12/21/18 at 21:00 Cephalexin (Keflex) 500 mg Q6 PO Last administered on 12/23/18at 12:20; Admin Dose 500 MG; Start 12/22/18 at 06:00; Stop 12/27/18 at 17:59 Assessment/Plan Additional Assessment/Plan Rehab- Acute on chronic encephalopathy; History of cerebrovascular accident. Patient improving. DC planning in progress Atrial fibrillation. Recent fall with left elbow contusion and abrasion Urinary tract infection. Acute kidney injury. Hypertension, which has been improving. CARLOS ROD MD December 23, 2018 13:21
[2018-12-23 14:00] VITALS: BP 128/64; PULSE 68; RESP 18
[2018-12-23 20:00] VITALS: BP 116/61; PULSE 63; RESP 18
[2018-12-23] MEDS: MELATONIN 5 MG TABLET PO SCH (20:06)
[2018-12-24 02:04] VITALS: BP 111/64; PULSE 60; RESP 17
[2018-12-24] MEDS: CEPHALEXIN 250 MG CAP PO SCH ×2 (05:18→11:11)
[2018-12-24 07:30] VITALS: BP 124/71; PULSE 59; RESP 18
[2018-12-24] MEDS: SENNA TAB PO SCH (09:07)
[2018-12-24] MEDS: APIXABAN 5 MG TABLET PO SCH (09:07)
[2018-12-24] MEDS: NEOMYC/POLYMYX/BACIT 30 GM OINT TOP SCH (09:07)
[2018-12-24] MEDS: DOCUSATE SODIUM 100 MG CAP PO SCH (09:07)
--- NOTE | 2018-12-24 11:37 | DS ---
Date/Time of Note Date/Time of Note DATE: 12/24/18 TIME: 11:37 Discharge Summary Admission/Discharge Info Admit Date/Time Dec 16, 2018 at 15:54 Discharge Date/Time Discharge Diagnosis 1. Acute on chronic encephalopathy;History of cerebrovascular accident. 2. Atrial fibrillation. 3. Recent fall with left elbow contusion and abrasion. 4. Urinary tract infection. 5. Acute kidney injury. 6. Hypertension, which has been improving. 7. Improvements in self-care, mobility and cognition. Patient Condition: Good Hospital Course The patient was admitted for comprehensive interdisciplinary rehabilitation and made steady functional gains from a Mod level to a SBA/S level for self care tasks and mobility including ambulating over 150 feet with the use of a FWW. Despite excellent functional gains, family now saying they are unable to take him home, and requesting lower level of care. Patient is being discharged to lower level of care. The patient will follow up with PMD upon DC. Home Meds Active Scripts Cephalexin* (Cephalexin*) 500 Mg Capsule, 500 MG PO Q6 for 11 Days, CAP Prov:JASON BARRIGA 12/16/18 Reported Medications Apixaban* (Eliquis*) 2.5 Mg Tablet, 2.5 MG PO BID, TAB 07/13/17 Primary Care Provider Not On Staff Doctor CARLOS ROD MD December 24, 2018 11:37
--- NOTE | 2018-12-24 14:55 | PN ---
Date/Time of Note Date/Time of Note DATE: 12/24/18 TIME: 14:53 Assessment/Plan VTE Prophylaxis Risk score (from Ns)>0 risk: 4 SCD applied (from Ns): No SCD contraindicated: other Pharmacological prophylaxis: apixaban Lines/Catheters IV C[facility] (from [facility] Saline Lock Urinary Cath still in place: No Assessment/Plan Hospital Course SUBJECTIVE: Patient is for discharge today. No acute issues. OBJECTIVE: Vital signs-see below PHYSICAL EXAM: Constitutional: Thin built, elderly male,not in acute distress. HEENT: Head atraumatic and normocephalic. Eyes: Extraocular muscles intact. Anicteric sclerae. Pupils equal bilaterally, reactive to light.Ear canal w/Cerumen/debris. NECK: Supple without lymph node. CHEST: Clear and good breath sounds equally. No wheezing. No rhonchi. HEART: S1, S2. Regular rate and rhythm. ABDOMEN: Soft/non tender with no rebound tenderness. Bowel sounds were present. EXTREMITIES: No cyanosis, clubbing or edema. NEUROLOGIC:+ Mildly confused/forgetful. Otherwise for the most part alert and oriented x3. No focal deficit. No sensory deficit. PSYCHOSOCIAL: No signs of depression. INTEGUMENTARY: No open wounds. ASSESSMENT AND PLAN: Encephalopathy with dementia Mentation back to baseline. Continue supportive care UTI -Status post antibiotic completion. Paroxysmal atrial fibrillation -Continue current medications/Eliquis H/o CVA - no residual defects noted Chronic anemia -Stable H&H. 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 -Continue supportive care. -Cont.Melatonin Prophylaxis: Eliquis. Agree with discharge planning to half-way. Patient is seen in collaboration with Exam/Review of Systems Exam Vitals Vital Signs Date Temp Pulse Resp B/P (MAP) Pulse Ox O2 O2 Flow FiO2 Time Delivery Rate 12/24/18 97.6 59 18 124/71 96 Room Air 2.0 07:30 (88) Intake and Output 12/23/18 12/23/18 12/24/18 1515:00 23:00 07:00 IntakeIntake Total 1000 ml 300 ml OutputOutput Total 100 ml 400 ml BalanceBalance 900 ml -100 ml DARIAN ALBARRAN NP December 24, 2018 14:55
== END 2018-12-24 11:20 | DRG 71 ==
LOC: VRC 15:54
PROVIDERS: ADMIT Physical Medicine & Rehabilitation; ATTEND Internal Medicine Pulmonary Disease
PROC: F07Z5ZZ Bed Mobility Treatment (ICD-10-PCS; principal; 2018-12-16)
PROC: F08Z2ZZ Grooming/Personal Hygiene Treatment (ICD-10-PCS; 2018-12-16)
DX: G93.40 Encephalopathy, unspecified (principal); N39.0 Urinary tract infection, site not specified; N17.9 Acute kidney failure, unspecified; Z86.73 Personal history of transient ischemic attack (TIA), and cerebral infarction without residual deficits; I48.91 Unspecified atrial fibrillation; S50.02XD Contusion of left elbow, subsequent encounter; S50.312D Abrasion of left elbow, subsequent encounter; W18.30XD Fall on same level, unspecified, subsequent encounter; I10 Essential (primary) hypertension; E78.00 Pure hypercholesterolemia, unspecified; D64.9 Anemia, unspecified; G47.00 Insomnia, unspecified; F03.90 Unspecified dementia, unspecified severity, without behavioral disturbance, psychotic disturbance, mood disturbance, and anxiety; B96.20 Unspecified Escherichia coli [E. coli] as the cause of diseases classified elsewhere
CPT/HCPCS: 80053; 81001; 85025; 87081; 87086; 92507; 92523; 92610; 97110; 97112; 97116; 97163; 97167; 97530; 97535; 97542